=== PATIENT | male | born 1950 | race Caucasian/White ===

== ENCOUNTER → 2019-03-24 10:03 | Outpatient (CLI) | payer MEDICARE, SELFPAY ==
--- NOTE | ~2019-03-24 | US_ITS ---
EXAMINATION: US abdomen complete EXAM DATE: 03/24/2019 10:34 INDICATION: Right upper quadrant pain. TECHNIQUE: Multiple grayscale and Doppler images of the complete abdomen were obtained (by a technolo gist who performed the scan) and subsequently reviewed. There is no prior study for comparison. FINDINGS: The abdominal aorta is normal in caliber. Visualized portion IVC is patent. The pancreatic head a nd body are normal in appearance. The pancreatic tail is not visualized. Mildly echogenic liver parenchyma, hepatic steatosis. There are no focal liver lesions identified. There is no evidence of intrahepatic biliary duct dilation. Portal venous flow was seen in the hepa topedal, normal direction and has normal Doppler waveform. Common bile duct measures 5 mm, which is normal. The gallbladder wall is normal in thickness, with ex pected amount of distention. No sonographic evidence of pericholecystic fluid. There is no cholelit hiases. Technologist performing exam reports patient did not demonstrate sonographic Pinzon's sign. Please note that this sign is less reliable in patients who have received pain medication. Right kidney: There is normal contour and echogenicity. It measures 10.3 x 4.8 x 6.1 centimeters. There are no focal renal lesions identified. There is no hydronephrosis. Left kidney: There is normal contour and echogenicity. It measures 10.8 x 6.5 x 5.5 centimeters. T here are no focal renal lesions identified. There is no hydronephrosis. The spleen measures 10.2 centimeters and is morphologically normal. IMPRESSION: Unremarkable complete abdominal ultrasound exam. Reviewed, dictated and finalized at location B. DIP GALVANIZER
== END ==
PROVIDERS: PCP Family Medicine; Visit Provider Family Medicine
DX: R10.11 Right upper quadrant pain (principal)
CPT/HCPCS: 76700

== ENCOUNTER 2020-03-11 10:25 | Outpatient (CLI) | payer MEDICARE, SELFPAY ==
--- NOTE | ~2020-03-11 | US_ITS ---
EXAMINATION: US aorta [facility] DATE: 03/11/2020 11:00 DRIVING INSTRUCTOR INDICATION: Abdominal aortic aneurysm screening. Smoking history. TECHNIQUE: Grayscale, color Doppler, and pulsed Doppler images of the aorta and common iliac arteries were obtained. COMPARISON: None. FINDINGS: The proximal aorta measures 2.2 cm greatest sagittal dimension. The mid aorta measures 1.9 cm greates t sagittal dimension. The distal aorta measures 1.9 cm greatest sagittal dimension. The right common internal iliac artery measures 1 cm. The left common iliac artery measures 1.2 cm. There is moderate atherosclerosis of the lower abdominal aorta. IMPRESSION: 1. Atherosclerosis of the aorta without aneurysm. Reviewed, dictated and finalized at location A. ING INSTRUCTOR
== END 2020-03-11 10:26 | disposition home or self-care (01) ==
PROVIDERS: PCP Internal Medicine; Visit Provider Internal Medicine
DX: Z87.891 Personal history of nicotine dependence (principal); I70.0 Atherosclerosis of aorta
CPT/HCPCS: 76706

== ENCOUNTER 2021-07-01 16:05 | Inpatient (IN) | payer MEDICARE, SELFPAY ==
[2021-07-01] VITALS (21 sets, daily range): BP systolic 88–120; BP diastolic 61–77; PULSE 63–84; RESP 16–27; TEMP 36.3–37.1; O2SAT 94–99; BMI 27.8
--- NOTE | 2021-07-01 16:07 | ECG_ITS ---
Measurements Intervals [place] Rate: 73 P: 19 [place]: 206 QRS: 31 QRSD: 153 T: 91 QT: 428 QTc: 473 Interpretive Statements SINUS RHYTHM WITH SINUS ARRHYTHMIA WITH FIRST DEGREE AV BLOCK ATRIAL PREMATURE COMPLEX RIGHT BUNDLE BRANCH BLOCK INFERIOR ST ELEVATION MYOCARDIAL INFARCT- ACUTE ABNORMAL ECG Electronically Signed On 07-01-2021 16:38:12 CDT by Davonte Jolley D.O.
--- NOTE | 2021-07-01 16:10 | ED.CHESTPAIN ---
HPI - Chest Pain General Chief Complaint: Chest Pain Stated Complaint: STEMI Time Seen by Provider: 07/01/21 16:07 History of Present Illness HPI narrative: Crushing chest pain that started several hours ago while he was at the cafeteria, has never had any heart problems in the past, feels like it is underneath his chest, feeling nauseous and the pain is quite severe. Had already taking 325 of aspirin this morning. MD complaint: chest pain Timing of current episode: constant and still present Prior episodes: No Pain location: substernal Severity: severe Quality: tightness and heaviness Relieving factors: nothing Risk Factors Coronary artery disease risk factors: diabetes, smoking history and hypertension Related Data Home Medications Medication Instructions Recorded Confirmed cholecalciferol (vitamin D3) 50 50 mcg PO DAILY 03/06/20 05/15/21 mcg (2,000 unit) capsule magnesium oxide 400 mg PO DAILY 03/06/20 05/15/21 metoprolol tartrate 100 mg tablet 100 mg PO DAILY 03/06/20 05/15/21 omega-3 fatty acids 1,000 mg 1,000 mg PO DAILY 03/06/20 05/15/21 capsule zinc 50 mg tablet 50 mg PO DAILY 03/06/20 05/15/21 Allergies Allergy/AdvReac Type Severity Reaction Status Date / Time Penicillins Allergy Unknown Rash Verified 05/15/21 09:45 bacitracin Allergy Itching,sammie Verified 05/15/21 09:45 h benzalkonium chloride Allergy Itching,sammie Verified 05/15/21 09:45 h gramicidin D Allergy Itching,sammie Verified 05/15/21 09:45 h hydrocortisone Allergy Itching,sammie Verified 05/15/21 09:45 h polymyxin B Allergy Itching,sammie Verified 05/15/21 09:45 h BACITRACIN ZINC Allergy Itching,sammie Uncoded 05/15/21 09:45 h NEOMYCIN SULFATE Allergy Itching,sammie Uncoded 05/15/21 09:45 h POLYMYXIN B SULFATE Allergy Itching,sammie Uncoded 05/15/21 09:45 h Review of Systems Review of Systems: All systems reviewed & are unremarkable except as noted in HPI and below PMFSH Past Medical History Medical History (Updated 07/01/21 @ 16:18 by Nasima Hassan MD) Arthritis Diabetes Essential hypertension Impaired fasting glucose Surgical History Surgical History H/O hand surgery Family History Family History Mother Cardiac arrest Father Heart disease Other Diabetes mellitus Family history of cardiovascular disease Social History Social History Smoking packs per day: 0.5 Smoking cigarettes per day: 10.0 Years smoked: 25 Smoking pack-years: 12.50 Tobacco type: cigarettes Second hand tobacco smoke exposure: Yes Alcohol intake: former Substance use: never Substance use type: does not use Exam Const: General: diaphoretic and ill appearing HENMT: Head: normal to inspection Eyes: Other: Eyes closed with pain Neck: Neck: normal visual inspection Chest: Chest palpation & inspection: normal inspection of the chest and no tenderness Resp: Effort & Inspection: normal respiratory effort Cardio: Rate: regular rate Rhythm: regular rhythm GI: Inspection: non-distended Skin: General skin exam: normal color Neuro: General: patient oriented x3 Speech: No Abnormal speech present Extrem: General: normal to inspection Psych: Mental Status: mental status grossly normal Course Course Emergency Course: EMS called for STEMI. Patient arrived here, I did speak with the interventional list who came to bedside, I did review the twelve-lead which did show inferior CT, patient had already taken aspirin at home, he will be loaded with Brilinta here, and interventional cardiology will be taken to the drop crew laborer. MDM - Chest Pain MDM Narrative Medical decision making narrative: 71-year-old male with history of diabetes, hypertension, smoking history, presents with crushing chest pain, EKG shows ST elevations in leads II and II
--- NOTE | 2021-07-01 16:11 | PC.NURSE ---
pt to labor and delivery registered nurse with staff vorb for brillanta [address] Muir no other orders prior to exiting the ED
[2021-07-01] MEDS: TICAGRELOR 90 MG TABLET 180 MG PO (16:15)
--- NOTE | 2021-07-01 16:16 | PM.IMHP ---
H&P: HPI History of Present Illness Date/Time: 07/01/21 16:16 Chief Complaint: Chest pain Narrative: this is a 71-year-old patient unknown to me prior to this evaluation. He is being seen in the emergency room in the setting of suspected acute ST-elevation DC he has just brought in by ambulance. The patient was outside of the hospital and began to experience substernal chest pain pressure like radiation to the left shoulder about an hour and half to 2 hours ago. Upon arrival at the scene EMS performed an ECG which appears to show sinus rhythm with acute inferior current of injury. In that setting he is being seen in consultation in the ER as we prepare for emergency angiography. He denies any prior knowledge of cardiovascular problems. According to the chart looks like he has diabetes mellitus, dyslipidemia and cigarette smoking as his principal risk factors. Review of Systems Review of Systems: ROS unobtainable: Yes unobtainable due to medical condition PMFSH Past Medical History Medical History (Updated 07/01/21 @ 16:18 by Nasima Hassan MD) Arthritis Diabetes Essential hypertension Impaired fasting glucose Surgical History Surgical History H/O hand surgery Family History Family History Mother Cardiac arrest Father Heart disease Other Diabetes mellitus Family history of cardiovascular disease Social History Social History Smoking packs per day: 0.5 Smoking cigarettes per day: 10.0 Years smoked: 25 Smoking pack-years: 12.50 Tobacco type: cigarettes Second hand tobacco smoke exposure: Yes Alcohol intake: former Substance use: never Substance use type: does not use Meds Home Medications and Allergies Home Medications Medication Instructions Recorded Confirmed Type cholecalciferol (vitamin D3) 50 50 mcg PO DAILY 03/06/20 05/15/21 History mcg (2,000 unit) capsule magnesium oxide 400 mg PO DAILY 03/06/20 05/15/21 History metoprolol tartrate 100 mg tablet 100 mg PO DAILY 03/06/20 05/15/21 History omega-3 fatty acids 1,000 mg 1,000 mg PO DAILY 03/06/20 05/15/21 History capsule zinc 50 mg tablet 50 mg PO DAILY 03/06/20 05/15/21 History rosuvastatin 20 mg tablet 20 mg PO DAILY #90 tablet 10/02/20 05/15/21 Rx metformin 1,000 mg tablet See Rx Instructions .ROUTE 01/03/21 05/15/21 Rx .COMPLEX #180 tablet blood sugar diagnostic See Rx Instructions .ROUTE 04/01/21 05/15/21 Rx .COMPLEX #100 strip empagliflozin 25 mg tablet 25 mg PO DAILY #90 tablet 05/03/21 05/15/21 Rx insulin glargine 100 unit/mL (3 See Rx Instructions .ROUTE 05/15/21 05/15/21 Rx mL) subcutaneous pen .COMPLEX #30 ml hydrochlorothiazide 25 mg tablet 25 mg PO DAILY #90 tablet 05/17/21 Rx lisinopril 40 mg tablet 40 mg PO DAILY #90 tablet 05/17/21 Rx Allergies Allergy/AdvReac Type Severity Reaction Status Date / Time Penicillins Allergy Unknown Rash Verified 05/15/21 09:45 bacitracin Allergy Itching,sammie Verified 05/15/21 09:45 h benzalkonium chloride Allergy Itching,sammie Verified 05/15/21 09:45 h gramicidin D Allergy Itching,sammie Verified 05/15/21 09:45 h hydrocortisone Allergy Itching,sammie Verified 05/15/21 09:45 h polymyxin B Allergy Itching,sammie Verified 05/15/21 09:45 h BACITRACIN ZINC Allergy Itching,sammie Uncoded 05/15/21 09:45 h NEOMYCIN SULFATE Allergy Itching,sammie Uncoded 05/15/21 09:45 h POLYMYXIN B SULFATE Allergy Itching,sammie Uncoded 05/15/21 09:45 h Vital Signs Vital Signs - 24 hr 07/01/21 16:03 Temperature 36.3 C L Pulse Rate 74 Respiratory Rate 17 Blood Pressure 103/69 Pulse Oximetry 99 Exam Const: General: in distress Other: Elderly white male appearing a bit older than his stated age moderate distress with chest pain HENMT: Mouth: Yes moist mucous membranes Eyes:
[2021-07-01 17:12] LABS: Basophils Absolute Auto 0.1 K/mm3 (0.0-0.1); Basophils Percent Auto 0.5 % (0.2-1.2); Eosinophils Absolute Auto 0.2 K/mm3 (0-0.3); Eosinophils Percent Auto 1.7 % (0-4.4); Hematocrit 43.8 % (42.0-52.0); Hemoglobin 14.4 g/dL (14.0-18.0); Immature Granulocyte Absolute 0.17 K/mm3 (0.00-0.031); Immature Granulocyte Percent A 1.3 % (0-0.5); Lymphocytes Absolute Auto 1.81 K/mm3 (0.9-3.2); Lymphocytes Percent Auto 14.2 % (18.3-44.2); Mean Corpuscular HGB Conc 32.9 g/dl (32-36); Mean Corpuscular Hemoglobin 29.8 pg (26-34); Mean Corpuscular Volume 90.5 fl (80-100); Mean Platelet Volume 10.8 fl (7.4-10.4); Monocytes Absolute Auto 0.9 K/mm3 (0.1-0.6); Monocytes Percent Auto 7.3 % (2.6-8.5); Neutrophils Absolute Auto 9.5 K/mm3 (1.3-6.7); Platelet Count Result 245 k/mm3 (150-375); Red Blood Count 4.84 M/mm3 (4.6-6.20); Red Cell Distribution Width 14.6 % (11.5-14.5); White Blood Count 12.7 K/mm3 (4.5-10.0)
[2021-07-01 17:20] LABS: Alanine Aminotransferase 12 U/L (6-50); Albumin Level 4.1 g/dL (3.5-5.1); Alkaline Phosphatase 57 U/L (38-126); Anion Gap 12 mmol/L (8-16); Aspartate Amino Transferase 24 U/L (17-59); Bilirubin,Total 0.3 mg/dL (0.2-1.3); Blood Urea Nitrogen 35 mg/dL (9-20); Calcium 8.3 mg/dL (8.4-10.2); Carbon Dioxide 19 mmol/L (22-30); Chloride 105 mmol/L (98-107); Estimated CRCL calculation 38 ml/min; Estimated Glomerular Filt Rate 37; Glucose 176 mg/dL (65-110); Potassium 3.5 mmol/L (3.4-5.0); Sodium 136 mmol/L (137-145)
[2021-07-01 17:33] LABS: Partial Thromboplastin Time 113.8 SECONDS (22.3-36.8)
--- NOTE | 2021-07-01 17:36 | WPDCARDPROC ---
Cardiac Cath Procedure Note Date of procedure:: 07/01/21 Performing physician:: Chad Muir MD Indication:: acute inferior wall [place] Brief clinical history:: this is a 71-year-old man with a history of longstanding cigarette smoking hypertension and dyslipidemia presents with chest pain and ECG evidence of acute ST-elevation inferior wall AZ Procedure Procedure performed:: emergency coronary angiography emergency PCI(EMILY) to the proximal RCA Sedation/Medication given:: Versed 1 mg case start time 4:28 p.m. case end time 5:19 p.m. Access site:: right femoral artery, left femoral artery Estimated blood loss:: 50 cc Procedure note:: patient was brought to the cardiac catheterization lab in the emergency setting described above where the right femoral triangle was prepared and draped in the usual fashion. Anesthesia was provided with 1% lidocaine infiltrated locally the right UE was then punctured and a 6 Tongan vascular sheath was placed. Following this I used a standard 5 Tongan FL4 catheter to engage and inject the left coronary artery in multiple projections. After this I used a 6 Tongan JR4 guiding catheter to engage and inject the right coronary artery. PCI of the proximal right coronary occlusion was then recommended and carried out as detailed below. The patient had received aspirin and 180 mg of Brilinta in the emergency room. He was anticoagulated with bolus and infusion of Angiomax for this PCI. Because of difficulty with access and guidewire dissection of the right femoral artery the left femoral artery was punctured and the procedure was completed from this site. Following completion of the intervention as described below the right and left femoral vascular sheath was sutured into position he was taken back to the ICU in stable condition there was no sign of any other than the dissection as described above and there was no evidence of groin hematoma upon completion of the case. Findings:: Hemodynamics: Central aortic pressure varied from 110/72 to a low of 75/45. The left ventricle was not entered during this procedure The left main coronary artery is nicely patent the left anterior descending is heavily calcified in its proximal aspect. Despite this there are no stenotic lesions in the LAD other than mild luminal irregularities in the proximal and midportions. There was NOEMÍ 3 flow in the vessel down to the apex. The circumflex is a moderate caliber artery giving rise to a. The largest marginal branch has a discrete 70-80% stenosis in the midportion. The right coronary caliber dominant to the posterior circulation and is moderately calcified as well. The right coronary artery is 100% occluded in the proximal segment with no antegrade flow. Intervention: The right coronary artery was initially engaged using a 6 Tongan JR4 guiding catheter. The 0.014 BMW wire would not traverse occlusion. I did traverse the occlusion using a 0.014 drawing box tender 150 wire. following this with some difficulty I was able to advance a balloon into the site of the occlusion and pre-dilated the area with a 3 x 20 mm Wilner balloon. This restored NOEMÍ 3 flow into the vessel. Following this I attempted to stent the target lesion using a 3.5 x 22 mm Orsiro device which would not advance through the heavily calcified proximal area to the target lesion. As these attempts continue the entire guiding catheter and wires position were lost in the right coronary artery in the entire system was removed. Following that I plan to re-engage the right coronary artery using a AL1 guiding catheter. The guidewire however would not advance from the right femoral sheath into the central aortic circulation. There was good arterial flow in the sheath however inability to advance the wire was encountered. I performed an angiogram through the sheath and it was clear there was a retrograde wire dissection in the femoral vessel. There appeared to be good flow
[2021-07-01 17:44] LABS: Prothrombin Time 65.2 Seconds (11.1-14.7)
[2021-07-01 17:52] LABS: Troponin I 0.019 ng/mL (0.000-0.034)
--- NOTE | 2021-07-01 17:54 | ECG_ITS ---
Measurements Intervals [place] Rate: 85 P: 38 [place]: 199 QRS: -66 QRSD: 143 T: 0 QT: 432 QTc: 516 Interpretive Statements SINUS RHYTHM ATRIAL COUPLET RIGHT BUNDLE BRANCH BLOCK INFERIOR ST ELEVATION MYOCARDIAL INFARCT- ACUTE POSTERIOR INFARCT, ACUTE BASELINE ARTIFACT- I, II III, AVR, AVL, AVF, V4-V5 ABNORMAL ECG Electronically Signed On 07-02-2021 7:50:33 CDT by Davonte Jolley D.O.
[2021-07-01 18:26] LABS: Anion Gap 13 mmol/L (8-16); Blood Urea Nitrogen 34 mg/dL (9-20); Calcium 8.7 mg/dL (8.4-10.2); Carbon Dioxide 20 mmol/L (22-30); Chloride 104 mmol/L (98-107); Cholesterol 142 mg/dL (0-200); Estimated CRCL calculation 34 ml/min; Estimated Glomerular Filt Rate 37; Glucose 139 mg/dL (65-110); HDL Direct 33 mg/dL; Potassium 4.2 mmol/L (3.4-5.0); Sodium 137 mmol/L (137-145); Triglycerides 346 mg/dL (<150)
[2021-07-01 18:27] LABS: INR 2.6; Prothrombin Time 26.7 Seconds (11.1-14.7)
[2021-07-01 18:37] LABS: LDL Cholesterol Direct 68 mg/dL
[2021-07-01 18:40] LABS: Troponin I 0.088 ng/mL (0.000-0.034)
[2021-07-01] MEDS: SODIUM CHLORIDE 0.9% IV 1,000 ML 125 ML IV CONT (18:55)
[2021-07-01 19:53] LABS: Partial Thromboplastin Time 79.4 SECONDS (22.3-36.8)
[2021-07-01 21:22] LABS: INR 1.3; Partial Thromboplastin Time 42.7 SECONDS (22.3-36.8); Prothrombin Time 15.7 Seconds (11.1-14.7)
[2021-07-01] MEDS: TICAGRELOR 90 MG TABLET PO (23:00)
[2021-07-02] VITALS (24 sets, daily range): BP systolic 103–124; BP diastolic 65–79; PULSE 62–87; RESP 13–24; TEMP 36.7–37.1; O2SAT 95–98
[2021-07-02] MEDS: ACETAMINOPHEN 500 MG TABLET PO (02:54)
--- NOTE | 2021-07-02 05:11 | ECG_ITS ---
Measurements Intervals [place] Rate: 63 P: -33 [place]: 188 QRS: -74 QRSD: 158 T: -53 QT: 460 QTc: 474 Interpretive Statements SINUS RHYTHM RIGHT BUNDLE BRANCH BLOCK INFERIOR INFARCT, AGE INDETERMINATE ABNORMAL ECG Electronically Signed On 07-02-2021 9:51:08 CDT by Davonte Jolley D.O.
--- NOTE | 2021-07-02 08:32 | PC.NURSE ---
Cardiopulmonary Rehab Services flyer was given to patient.
[2021-07-02 08:37] LABS: Glucose Point of Care 125 mg/dl (65-105)
[2021-07-02 08:47] LABS: Hemoglobin 14.5 g/dL (14.0-18.0); Mean Corpuscular HGB Conc 34.5 g/dl (32-36); Mean Corpuscular Hemoglobin 30.3 pg (26-34); Mean Corpuscular Volume 87.7 fl (80-100); Mean Platelet Volume 10.7 fl (7.4-10.4); Platelet Count Result 238 k/mm3 (150-375); Red Blood Count 4.79 M/mm3 (4.6-6.20); Red Cell Distribution Width 14.7 % (11.5-14.5); White Blood Count 14.2 K/mm3 (4.5-10.0)
[2021-07-02 08:58] LABS: Alanine Aminotransferase 14 U/L (6-50); Alkaline Phosphatase 54 U/L (38-126); Anion Gap 10 mmol/L (8-16); Aspartate Amino Transferase 86 U/L (17-59); Bilirubin,Total 0.8 mg/dL (0.2-1.3); Blood Urea Nitrogen 24 mg/dL (9-20); Calcium 8.8 mg/dL (8.4-10.2); Carbon Dioxide 20 mmol/L (22-30); Chloride 108 mmol/L (98-107); Estimated CRCL calculation 59 ml/min; Estimated Glomerular Filt Rate > 60; Glucose 103 mg/dL (65-110); Potassium 3.8 mmol/L (3.4-5.0); Sodium 138 mmol/L (137-145)
[2021-07-02 09:19] LABS: Creatine Kinase 881 U/L (55-170)
[2021-07-02] MEDS: LACTATED RINGERS 1,000 ML 75 ML IV CONT ×2 (09:28→23:15)
[2021-07-02] MEDS: ASPIRIN 81 MG CHEWABLE TABLET PO (09:42)
[2021-07-02] MEDS: ROSUVASTATIN 10 MG TABLET 20 MG PO (09:42)
[2021-07-02] MEDS: lisinopriL 10 MG TABLET PO (09:42)
[2021-07-02] MEDS: METOPROLOL SUCCINATE EXT REL 50 MG TABCR PO (09:42)
[2021-07-02] MEDS: TICAGRELOR 90 MG TABLET PO ×2 (09:42→21:16)
[2021-07-02] MEDS: FONDAPARINUX SODIUM 2.5 MG/0.5 ML SYRINGE SUB-Q (09:43)
[2021-07-02 11:28] LABS: Glucose Point of Care 127 mg/dl (65-105)
--- NOTE | 2021-07-02 12:04 | WPDCNINT ---
Assessment and Plan Assessment and plan (1) ST elevation (STEMI) myocardial infarction: Qualifiers: Involved coronary artery: other inferior wall coronary artery Qualified Code(s): I21.19 - ST elevation (STEMI) myocardial infarction involving other coronary artery of inferior wall Code(s): I21.3 - ST elevation (STEMI) myocardial infarction of unspecified site Status: Acute Assessment and Plan: Says status post successful PCI of RCA total occlusion Continue aspirin, lisinopril metoprolol Crestor and Brilinta Check echo Patient is symptomatic at this time Continue IV fluids (2) Essential hypertension: Code(s): I10 - Essential (primary) hypertension Status: Acute Assessment and Plan: Patient on beta-moreno and GENARO-inhibitor Monitor and adjust accordingly (3) Diabetes: Qualifiers: Diabetes mellitus type: type 2 Diabetes mellitus senior living insulin use: with exterminator termite use Diabetes mellitus complication status: with hyperglycemia Qualified Code(s): E11.65 - Type 2 diabetes mellitus with hyperglycemia; Z79.4 - detention (current) use of insulin Code(s): E11.9 - Type 2 diabetes mellitus without complications Status: Acute Assessment and Plan: Hold metformin due to elevation in creatinine Start sliding scale insulin Add Lantus once p.o. intake improves and blood sugars elevated (4) Dissection of right femoral artery: Code(s): I77.77 - Dissection of artery of lower extremity Status: Acute Assessment and Plan: Patient had retrograde guidewire dissection of right femoral artery but had good arterial flow. No intervention was performed. Pulses are unchanged patient asymptomatic Further management per Cardiology (5) FLOR (acute kidney injury): Code(s): N17.9 - Acute kidney failure, unspecified Status: Acute Assessment and Plan: Patient presented with elevated creatinine 1.8 which was checked after cardiac catheterization so could be contrast induced versus rhabdomyolysis at CK is elevated at 881. Patient also on metformin at home Improved with IV fluids and creatinine in normal range. Will continue IV fluids through today Monitor urine output electrolytes and creatinine Monitor CK level Additional Plan DVT prophylaxis -Arixtra Code Status - Full Code Transfer out of ICU today Geothermal Technician Consult Note Consult date: 07/02/21 HPI: Reji Heredia is a 71 year old male presented to ER with chief complaint of chest pain. Pain was substernal, pressure-like quality, 10/10 severe, no radiation, no aggravating or relieving factors. Pain was associated with feeling cold and clammy, dizziness and lightheadedness. No associated nausea vomiting or shortness of breath. In ED patient was diagnosed with ST segment elevation [place] and was taken to cardiac catheterization lab and underwent a cardiac catheterization which showed 1. Coronary artery disease presenting with acute inferior wall ST-elevation [place] in 71-year-old gentleman with hypertension dyslipidemia and smoking. 2. Proximal RCA total occlusion was successfully treated would a procedure that proved to be somewhat difficult and challenging for all the reasons described above ultimately after deployment of the 3.5 mm drug-eluting stent the else vessel is nicely patent with very good flow into the distal RCA except for the last 3rd RPL branch. 3. Non infarct related moderate stenosis of 70-80% in the OM branch of the circumflex 4. retrograde guidewire dissection of the right femoral artery further access of the aorta from this approach. despite this there was good arterial flow into the sheath and the procedure was finished as described above from the left femoral Artery. Post cardiac catheterization patient was admitted to ICU for further evaluation management including vascular check. Patient this morning states that he feels much better and denies any complaints at this time.
[2021-07-02 15:45] LABS: Glucose Point of Care 168 mg/dl (65-105)
--- NOTE | 2021-07-02 16:03 | PM.PNCARD ---
Progress Note: A&P Assessment and Plan (1) ST elevation (STEMI) myocardial infarction: Qualifiers: Involved coronary artery: other inferior wall coronary artery Qualified Code(s): I21.19 - ST elevation (STEMI) myocardial infarction involving other coronary artery of inferior wall Code(s): I21.3 - ST elevation (STEMI) myocardial infarction of unspecified site Status: Acute Assessment and Plan: stable, doing well post 3.5 x 22 mm Orsiro drug-eluting stent to side of proximal RCA total occlusion. Moderate stenosis 70-80% of OM branch of circumflex. Dual antiplatelet therapy without interruption with aspirin 81 mg daily and ticagrelor 90 mg q.12 hours, statin lisinopril, Toprol XL 50 mg daily. 2D echocardiogram to assess valve pathology, LV function, wall motion abnormalities, pulmonary pressures. Okay to transfer to IMU. (2) Dissection of right femoral artery: Code(s): I77.77 - Dissection of artery of lower extremity Status: Acute Assessment and Plan: Retrograde guidewire dissection right femoral artery access as noted per Dr. Muir good arterial flow no evidence of vascular compromise, cyanosis, palpable DP pulses. Continue close observation. (3) Essential hypertension: Code(s): I10 - Essential (primary) hypertension Status: Acute Assessment and Plan: stable. Continue medical therapy. (4) Diabetes: Qualifiers: Diabetes mellitus type: type 2 Diabetes mellitus terminologist insulin use: with fci use Diabetes mellitus complication status: with hyperglycemia Qualified Code(s): E11.65 - Type 2 diabetes mellitus with hyperglycemia; Z79.4 - terminal manager (current) use of insulin Code(s): E11.9 - Type 2 diabetes mellitus without complications Status: Acute Assessment and Plan: Management per primary service. (5) Dyslipidemia: Code(s): E78.5 - Hyperlipidemia, unspecified Status: Acute Assessment and Plan: Rosuvastatin, goal LDL less than 70. (6) FLOR (acute kidney injury): Code(s): N17.9 - Acute kidney failure, unspecified Status: Acute Assessment and Plan: Resolved. (7) Tobacco use: Code(s): Z72.0 - Tobacco use Status: Acute Assessment and Plan: Immediate and absolute smoking cessation counseling. Subjective Date/time seen: Date of service:07/02/21 16:03 Follow-up for inferior STEMI status post drug-eluting stent to RCA feels well. No chest pain, shortness of breath palpitations. No issues overnight. No significant ventricular arrhythmias on telemetry. Denies groin or leg pain. Family at bedside. Review of Systems Review of Systems: All systems reviewed & are unremarkable except as noted in HPI and below Constitutional: Constitutional: Reports as per HPI and Reports no additional constitutional complaints Eyes: Eyes: Reports as per HPI and Reports no additional eye complaints ENT: Reports system reviewed and no additional complaints, except as documented and Reports as per HPI Cardiovascular: Cardiovascular: Reports as per HPI and Reports no additional cardiovascular complaints Respiratory: Respiratory: Reports as per HPI and Reports no additional respiratory complaints Gastrointestinal: Gastrointestinal: Reports as per HPI and Reports no additional gastrointestinal complaints Genitourinary: Genitourinary: Reports no additional male genitourinary complaints and Reports as per HPI Musculoskeletal: Musculoskeletal: Reports no additional musculoskeletal complaints and Reports as per HPI Integumentary/Breasts: Skin/Breast: Reports system reviewed and no additional complaints, except as docu and Reports as per HPI Neurologic: Reports system reviewed and no additional complaints, except as documented and Reports as per HPI Psychiatric: Psychiatric: Reports no additional psychiatric complaints and Reports as per HPI Endocrine: Endocrine: Rep
[2021-07-02 21:12] LABS: Glucose Point of Care 247 mg/dl (65-105)
[2021-07-03] VITALS: BP 115/78; PULSE 77; RESP 18; TEMP 36.6; O2SAT 94
--- NOTE | 2021-07-03 | ECHO_ITS ---
Patient Info Name: Reji Heredia Age: 71 years : 1950 Gender: Male Ht: 68 in Wt: 182 lbs BSA: 2.01 m2 HR: 71 bpm BP: 118 / 65 mmHg Heart Rhythm: Sinus Rhythm Technical Quality: Fair Exam Date: 07/03/2021 7:24 AM Exam Location: [facility] Patient Status: Inpatient Admit Date: 07/01/2021 Staff Ordering Physician: Rory Velez MD [employer] Manager: Ami Marlow RDCS Attending Provider: Chad Muir MD Referring Physician: Agustin MCARTHUR; Exam Type: CA echo doppler color flow Study Info Indications - stemi Complete two-dimensional, color flow and Doppler transthoracic echocardiogram is performed. Summary 1. Complete two-dimensional, color flow and Doppler transthoracic echocardiogram is performed. 2. Left ventricular chamber dimension is normal. 3. Left ventricular systolic function is normal, estimated at 60% with mild hypokinesis of the mid inferolateral, mid and basal inferior wall.. 4. There is no increased left ventricular wall thickness. 5. The left ventricular diastolic function is grade I diastolic dysfunction. 6. There is no aortic valve stenosis. 7. There is no mitral valve regurgitation. 8. There is trace tricuspid valve regurgitation. 9. No pulmonary hypertension, estimated pulmonary arterial systolic pressure is 23 mmHg. Left Ventricle Left ventricular chamber dimension is normal. Left ventricular systolic function is normal, estimated at 60% with mild hypokinesis of the mid inferolateral, mid and basal inferior wall.. There is no increased left ventricular wall thickness. The left ventricular diastolic function is grade I diastolic dysfunction. Right Ventricle Right ventricular chamber dimension is normal. Right ventricular systolic function is normal. Left Atria Left atrial chamber dimension is normal. Right Atria Right atrial chamber dimension is normal. Aortic Valve The aortic valve is trileaflet. There is no aortic valve stenosis. There is no aortic valve regurgitation. There is mild aortic valve calcification. Pulmonic Valve The pulmonic valve is not well visualized. Mitral Valve The mitral valve has thickened leaflets. There is no mitral valve regurgitation. The mitral valve annulus is mildly calcified. Tricuspid Valve The tricuspid valve leaflets are normal. There is trace tricuspid valve regurgitation. No pulmonary hypertension, estimated pulmonary arterial systolic pressure is 23 mmHg. Pericardium/Pleural The pericardium appears normal. There is no pericardial effusion. Inferior Vena Cava Normal inferior vena cava with >50% collapse upon inspiration consistent with normal right atrial pressure, 5 mmHg. Aorta The aortic root size at the sinus of Valsalva is normal. The prox ascending aorta size is normal. Left Ventricular Outflow Tract Name Value Normal LVOT Doppler LVOT Peak Gradient 4 mmHg LVOT Mean Gradient 1 mmHg LVOT VTI 14 cm LVOT VTI/AV VTI Ratio 0.5 Pulmonic Valve Name Value Normal
[2021-07-03 02:00] VITALS: BP 105/81; PULSE 84; RESP 19; O2SAT 92
[2021-07-03 04:00] VITALS: BP 108/81; PULSE 74; RESP 17; TEMP 36.8; O2SAT 92
[2021-07-03 04:43] LABS: Hemoglobin 14.9 g/dL (14.0-18.0); Mean Corpuscular HGB Conc 34.7 g/dl (32-36); Mean Corpuscular Hemoglobin 30.3 pg (26-34); Mean Corpuscular Volume 87.6 fl (80-100); Mean Platelet Volume 10.4 fl (7.4-10.4); Platelet Count Result 217 k/mm3 (150-375); Red Blood Count 4.91 M/mm3 (4.6-6.20); Red Cell Distribution Width 14.6 % (11.5-14.5)
[2021-07-03 04:57] LABS: Alanine Aminotransferase 16 U/L (6-50); Albumin Level 4.3 g/dL (3.5-5.1); Alkaline Phosphatase 61 U/L (38-126); Anion Gap 10 mmol/L (8-16); Aspartate Amino Transferase 87 U/L (17-59); Bilirubin,Total 1.2 mg/dL (0.2-1.3); Blood Urea Nitrogen 21 mg/dL (9-20); Calcium 9.2 mg/dL (8.4-10.2); Carbon Dioxide 22 mmol/L (22-30); Chloride 105 mmol/L (98-107); Creatine Kinase 672 U/L (55-170); Estimated CRCL calculation 59 ml/min; Estimated Glomerular Filt Rate > 60; Glucose 142 mg/dL (65-110); Potassium 4.1 mmol/L (3.4-5.0); Sodium 137 mmol/L (137-145)
[2021-07-03 06:00] VITALS: BP 106/74; PULSE 76; RESP 20; O2SAT 92
--- NOTE | 2021-07-03 07:37 | PM.DS ---
DS: Admitting Diagnosis Discharge Date 07/03/2021 Admitting Diagnosis Acute inferior wall myocardial infarction DS: Discharge Diagnosis Discharge Diagnosis (1) ST elevation (STEMI) myocardial infarction: Qualifiers: Involved coronary artery: other inferior wall coronary artery Qualified Code(s): I21.19 - ST elevation (STEMI) myocardial infarction involving other coronary artery of inferior wall Code(s): I21.3 - ST elevation (STEMI) myocardial infarction of unspecified site Status: Acute DS: Summary Hospital Course Reason for hospitalization: ST-elevation PA Hospital Course: This is a 71-year-old man without prior history of known coronary disease but with longstanding cigarette smoking hypertension and dyslipidemia. He presented to the hospital with about an hour and half of significant chest pain. ECG in the field demonstrated acute inferior wall PA. STEMI team/protocol was activated. Upon arrival in the emergency room he was found to be in the significant distress with chest pain otherwise hemodynamically stable. He was brought for emergency catheterization immediately. He was found to have 100% acute thrombotic occlusion of the proximal right coronary artery. His left coronary artery had no serious disease there was about a 70% stenosis and a OM branch of the circumflex with good flow in that vessel. He underwent emergency PCI which was successful but difficult and challenging. Initial guiding catheter did not provide adequate support to perform the PCI in the right coronary artery. When guiding catheters were changed we encountered a dissection in the right femoral artery treated by the guidewire in the vessel. There was good arterial flow in the artery but for this reason the left femoral artery had to be put should for access. The intervention was then completed successfully. The proximal right coronary artery was a heavily calcified artery it was difficult to deliver a stent into the vessel ultimately this was successful. The details of this are dictated in the procedure note DOS separately. Following this he was placed in the ICU and he was hemodynamically stable there were no arrhythmias following the event and his course was otherwise uncomplicated. He appears to be a good candidate for discharge today. His home medications already included lisinopril metoprolol and rosuvastatin. Because his blood pressure was low initially the doses of lisinopril and metoprolol have been decreased. He was admonished to discontinue cigarette smoking. He will be seen in the office for a 2-3 weeks in follow-up. He wishes to go back to work on Thursday07/08/2021. Time spent discussing smoking cessation with patient: more than 10 minutes Status at Discharge Functional status at discharge: independent ambulation Overall status at discharge: patient is progressing back to baseline Time Spent with Patient Time attestation: Total time spent providing and/or coordinating discharge services: Time spent: Less than 30 minutes Exam Const: General: no acute distress HENMT: Mouth: Yes moist mucous membranes Eyes: Sclera: sclerae normal Pupils: Equal, round and reactive pupils present Neck: Neck: supple and no JVD Other: Carotid pulses are intact bilaterally no audible bruits Resp: Auscultation: clear to auscultation bilaterally and diminished lung sounds Cardio: Rate: regular rate Rhythm: regular rhythm Other: Grade 2/6 crescendo decrescendo murmur audible at the base without radiation no gallop GI: GI Palp: Yes Soft to palpation Auscultation: normal bowel sounds Skin: General skin exam: normal color Neuro: General: gait normal Extrem: General: normal to inspection DS: Data Data Completed and Pending Labs on day of discharge: Labs from last 24 hours 07/03/21 07/03/21 07/02/21 04:36 04:36 21:09 WBC 11.0 H RBC 4.91 Hgb 14.9 Hct 43.0 MCV 87.6 MCH 30.3 MCHC 34.7 RDW 14.6 H Plt
[2021-07-03 08:00] VITALS: BP 115/87; PULSE 76; PULSE 78; RESP 19; TEMP 36.8; O2SAT 90; O2SAT 95
[2021-07-03 08:06] LABS: Glucose Point of Care 150 mg/dl (65-105)
[2021-07-03] MEDS: ASPIRIN 81 MG CHEWABLE TABLET PO (08:35)
[2021-07-03] MEDS: FONDAPARINUX SODIUM 2.5 MG/0.5 ML SYRINGE SUB-Q (08:36)
[2021-07-03 08:37] VITALS: PULSE 82
[2021-07-03] MEDS: lisinopriL 10 MG TABLET PO (08:37)
[2021-07-03] MEDS: TICAGRELOR 90 MG TABLET PO (08:37)
[2021-07-03] MEDS: ROSUVASTATIN 10 MG TABLET 20 MG PO (08:37)
[2021-07-03] MEDS: METOPROLOL SUCCINATE EXT REL 50 MG TABCR PO (08:37)
== END 2021-07-03 10:20 | disposition home or self-care (01) | DRG 247 ==
LOC: ANHED 16:12 → ANHICU 16:18
PROVIDERS: Internal Medicine; Admitting Provider Specialist; Emergency Provider Emergency Medicine; PCP Internal Medicine; Visit Provider Specialist
PROC: 027034Z Dilation of Coronary Artery, One Artery with Drug-eluting Intraluminal Device, Percutaneous Approach (ICD-10-PCS; CPT 93454; principal; 2021-07-01 16:10)
PROC: 027034Z Dilation of Coronary Artery, One Artery with Drug-eluting Intraluminal Device, Percutaneous Approach (ICD-10-PCS; 2021-07-01 16:10)
PROC: 027034Z Dilation of Coronary Artery, One Artery with Drug-eluting Intraluminal Device, Percutaneous Approach (ICD-10-PCS; CPT 36140; 2021-07-01 16:10)
DX: I21.11 ST elevation (STEMI) myocardial infarction involving right coronary artery (principal); N17.9 Acute kidney failure, unspecified; I97.51 Accidental puncture and laceration of a circulatory system organ or structure during a circulatory system procedure; I25.10 Atherosclerotic heart disease of native coronary artery without angina pectoris; I10 Essential (primary) hypertension; E78.5 Hyperlipidemia, unspecified; M19.90 Unspecified osteoarthritis, unspecified site; E11.65 Type 2 diabetes mellitus with hyperglycemia; F17.210 Nicotine dependence, cigarettes, uncomplicated; Z79.4 Long term (current) use of insulin
CPT/HCPCS: 36140; 36415; 80048; 80053; 80061; 82550; 82948; 83735; 84484; 85025; 85027; 85610; 85730; 86850; 86900; 86901; 93005; 93306; 93454; 96360; 99291; A9270; C1725; C1769; C1874; C1887; C1894; C9606; J1644; J1652; J2250; J7030; J7120

== ENCOUNTER 2021-10-30 09:45 | Outpatient (RCR) | payer MEDICARE, SELFPAY ==
[2021-08-15 10:59] LABS: Glucose Point of Care 177 mg/dl (65-105)
[2021-09-04 10:43] LABS: Glucose Point of Care 169 mg/dl (65-105)
[2021-09-18 10:47] LABS: Glucose Point of Care 117 mg/dl (65-105)
== END 2021-10-30 19:30 | disposition home or self-care (01) ==
LOC: ANHCPREHAB 09:45
PROVIDERS: PCP Internal Medicine; Visit Provider Nurse Practitioner Adult Health
DX: I25.2 Old myocardial infarction (principal)
CPT/HCPCS: 93798

== ENCOUNTER 2022-11-07 08:04 | Outpatient (CLI) | payer MEDICARE, SELFPAY ==
--- NOTE | ~2022-11-07 | XR_ITS ---
XR abdomen/kub 1V 11/07/2022 08:35 Indication: Right upper quadrant pain Procedure: KUB Comparison: No prior studies for comparison. Findings: Bowel gas pattern is nonobstructive. Moderate colonic fecal loading. There is a left renal stone. There are splenic arterial calcifications. Lung bases are unremarkable. Moderate lumbar spondy losis. There are pelvic phleboliths. Impression: 1: Left nephrolithiasis. Reviewed, dictated and finalized at location B. Impression: 1: Left nephrolithiasis.
--- NOTE | ~2022-11-07 | US_ITS ---
US abdomen limited INDICATION: Right upper quadrant pain PROCEDURE: Realtime right upper abdominal ultrasound. COMPARISON: No prior studies for comparison. FINDINGS: The pancreas is normal without focal mass or pancreatic ductal dilation. Liver echotexture is normal without focal mass or intrahepatic biliary dilatation. There is normal directional flow i n the portal vein. There are multiple gallbladder polyps. No gallstones, gallbladder wall thickening or pericholecystic fluid. Common bile duct measures 4 mm. No sonographic Pinzon's sign. IMPRESSION: 1: Gallbladder polyps. Reviewed, dictated and finalized at location B. IMPRESSION: 1: Gallbladder polyps.
--- NOTE | ~2022-11-07 | CT_ITS ---
EXAMINATION: CT lung screening DATE: 11/07/2022 08:25 INDICATION: Personal history of nicotine dependence TECHNIQUE: Computed tomography (CT) of the chest was performed without intravenous contrast. The dose -length product was 115.01 mGy-cm. Automated exposure control and iterative reconstruction technique were employed. COMPARISON: No prior studies for comparison. FINDINGS: Heart size normal. No thoracic lymphadenopathy. There is atherosclerosis of the aorta and c oronary arteries. Small hiatal hernia. No significant pleural or pericardial effusion. There are smal l bilateral pulmonary nodules which are not clearly calcified, 5 mm, right middle lobe, image 70. No endobronchial lesions. No suspicious focal airspace consolidation. No pneumothorax. Moderate-severe t horacic spondylosis. IMPRESSION: 1. Lung-RADS category 2: Benign appearance or behavior. Continue annual screening with noncontrast lo w-dose chest CT in 12 months. Reviewed, dictated and finalized at location B. IMPRESSION: 1. Lung-RADS category 2: Benign appearance or behavior. Continue annual screeni ng with noncontrast low-dose chest CT in 12 months.
--- NOTE | ~2022-11-07 | XR_ITS ---
XR hip BI 2V w AP pelvis DATE: 11/07/2022 08:35 INDICATION: Bilateral hip pain, worsening. No injury. TECHNIQUE: 08/10/2017 right hip COMPARISON: AP pelvis. AP and lateral views of each hip FINDINGS: There is levoscoliosis and degenerative disc disease of the lumbar spine including severe d egenerative disc disease at L3-4 and particularly. Normal alignment at the pubic symphysis and sacroiliac joints. No pelvic fracture or bone destruction . No fracture or dislocation, avascular necrosis or bone destruction of either hip is detected. Hip beth nt spaces are symmetric and well preserved. Abdominal aortic and right common and bilateral femoral artery calcifications are noted. IMPRESSION: Levoscoliosis and degenerative disc disease the lumbar spine No significant abnormality of the hips Reviewed, dictated and finalized at location A.
== END 2022-11-07 08:05 | disposition home or self-care (01) ==
LOC: ANHIMG 08:08
PROVIDERS: PCP Family Medicine; Visit Provider Family Medicine
DX: Z12.2 Encounter for screening for malignant neoplasm of respiratory organs (principal); F17.210 Nicotine dependence, cigarettes, uncomplicated; R10.11 Right upper quadrant pain; M25.551 Pain in right hip; M25.552 Pain in left hip; K82.4 Cholesterolosis of gallbladder; N20.0 Calculus of kidney; M51.36 Other intervertebral disc degeneration, lumbar region
CPT/HCPCS: 71271; 73521; 74018; 76705

== ENCOUNTER 2022-12-04 10:00 | Outpatient (RCR) | payer MEDICARE, SELFPAY ==
--- NOTE | 2022-11-05 11:13 | OPREHPOC ---
Outpatient Therapy Plan of Care This is a Multidisciplinary Plan of Care that may contain components documented by all disciplines (PT, OT, and ST.) PT Problem 1 PT Problem #1 Knowledge Deficit PT Goal 1 Goal 1* indep with HEP PT Problem 2 PT Problem #2 Pain PT Goal 1 Goal 1* pt report pain rating at worst at 7/10 PT Problem 3 PT Problem #3 Impaired Strength PT Goal 1 Goal 1* pt perform R and L mat exercises with 3# ankle wt x 15 reps with good stability single leg standing x 30 seconds with good stability 2* R 3* L PT Problem 4 PT Problem #4 Impaired Flexibility PT Goal 1 Goal supine 1* R hip flexion 105' 2* L hip flexion 105' 3* R SLR hamstring length 50' 4* L SLR hamstring length 50'
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
--- NOTE | 2022-11-12 11:33 | PCPTNOTE ---
Patient did not show up for scheduled appointment this date.
--- NOTE | 2022-12-04 10:30 | PTOPDC ---
Assessment and note entered by Elda Polk, PT Evaluation Information Assessment Status Discharge Diagnosis pain in R and L hips Onset past year Subjective Information doing better, hips hurt when sit too long- about 1 hour, then stiff when get up and have to walk; using bicycle for exercises, 10 min- 2x/day; Reported Pain Level Pain Score Self Report Additional Pain Score Comments pain range of 0-10/10; both hips with first standing up from sitting too long; once walk 20- 30' and it is better; Assessment PT Clinical Summary Reji has received 4 PT sessions and did not show for 1 appointment. Compared to the initial evaluation: pain rating the same at 0-10/10; main activity that increases his hip pain is sitting about 1 hour, then standing up to walk has hip pain, that eases after walking 20-30'; increase in hip and trunk strength; increase flexibility of R and L hamstring and hip flexion motions; education for HEP and posture completed. The goals were partially achieved. Discharge PT services. He is to continue with HEP Plan of Care PT Services Indicated No
== END 2022-12-04 11:41 | disposition home or self-care (01) ==
LOC: ANHPT 10:00
PROVIDERS: PCP Family Medicine; Visit Provider Family Medicine
DX: M25.551 Pain in right hip (principal); M25.552 Pain in left hip
CPT/HCPCS: 97110; 97161; 97530; 99199

== ENCOUNTER 2023-06-03 08:07 | Outpatient (CLI) | payer MEDICARE, SELFPAY ==
--- NOTE | ~2023-06-03 | XR_ITS ---
EXAMINATION: XR abdomen obstructive series DATE: 06/03/2023 08:30 INDICATION: Right upper quadrant abdominal pain. TECHNIQUE: Upright and supine views of the abdomen on 3 radiographs were obtained. COMPARISON: Abdomen radiographs 11/07/2022 FINDINGS: There are no dilated loops of bowel. There is a moderate volume of stool in the colon. No f ree intraperitoneal gas. Calcifications in the pelvis are likely phleboliths. IMPRESSION: 1. Normal bowel gas pattern. Reviewed, dictated and finalized at location A.
--- NOTE | ~2023-06-03 | US_ITS ---
Limited Abdominal Sonogram: Real-time sonographic imaging of the right upper quadrant was performed. Clinical History: Right upper quadrant pain Findings: The liver appears normal with no evidence of mass lesion or bile duct dilatation. Main por carmela vein demonstrates normal direction of flow. The gallbladder is well distended, and times is proba ble minimal sludge/debris. The common bile duct measures 3 mm. The visualized pancreas, aorta, and I VC are unremarkable. Impression: Probable minimal gallbladder sludge/debris. Reviewed, dictated and finalized at location M. Impression: Probable minimal gallbladder sludge/debris.
== END 2023-06-03 08:08 ==
PROVIDERS: PCP Family Medicine; Visit Provider Family Medicine
DX: R10.11 Right upper quadrant pain (principal)
CPT/HCPCS: 74019; 76705

== ENCOUNTER 2023-08-28 01:00 | Day surgery (SDC) | payer MEDICARE, SELFPAY ==
[2023-08-06 12:59] VITALS: BMI 27.3
--- NOTE | 2023-08-12 10:36 | PC.NURSE ---
Spoke with patient regarding medication PLAVIX. Pt. verbalizes understanding that the last dose of PLAVIX is to be taken on 08/23/2023 and the Endoscopist will instruct them when to restart after the procedure. Patient instructed to remain on Aspirin.
[2023-08-28 07:44] VITALS: BP 106/79; PULSE 84; RESP 18; TEMP 36; O2SAT 99; BMI 26.9
[2023-08-28] MEDS: LACTATED RINGERS 1,000 ML 150 ML IV CONT (07:58)
[2023-08-28 08:00] LABS: Glucose Point of Care 169 mg/dl (65-105)
--- NOTE | 2023-08-28 08:05 | WPDANESEPPF ---
Anes - Initial Pre Proc Eval Procedure: Operation Date: 08/28/23 09:00 Proposed Procedures p Colonoscopy - Levi Hazel MD Date/Time: 08/28/23 08:05 Surgeon: Levi Hazel MD Pre Op Diagnosis: Positive Cologuard Patient Data Age: 73 Gender: M Height: 1.73 m Weight: 80.4 kg Last Vital Signs Temp 96.8 F L 08/28/23 07:44 Pulse 84 08/28/23 07:44 Resp 18 08/28/23 07:44 BP 106/79 08/28/23 07:44 Pulse Ox 99 08/28/23 07:44 O2 Del Method Room Air 08/28/23 07:44 Allergies Allergy/AdvReac Type Severity Reaction Status Date / Time Penicillins Allergy Unknown Rash Verified 08/28/23 07:40 Home Medications Medication Instructions Recorded Confirmed Type cholecalciferol (vitamin D3) 50 50 mcg PO DAILY 03/06/20 08/28/23 History mcg (2,000 unit) capsule magnesium oxide 400 mg PO DAILY 03/06/20 08/28/23 History aspirin 81 mg chewable tablet 81 mg PO DAILY@0800 #30 tabs 07/03/21 08/28/23 Rx (Children's Aspirin) pen needle, diabetic 32 gauge x #50 ea 02/04/22 08/28/23 History (TRUEplus Pen Needle) clopidogrel 75 mg tablet 75 mg PO DAILY 06/02/22 08/28/23 History flash glucose scanning reader #1 ea 06/02/22 08/28/23 Rx (FreeStyle Juliann 2 [place]) blood sugar diagnostic (OneTouch #100 strips 10/13/22 08/28/23 Rx Verio test strips) flash glucose sensor (FreeStyle #6 ea 04/06/23 08/28/23 Rx Juliann 2 Sensor kit) rosuvastatin 20 mg tablet (Crestor) 20 mg PO DAILY #90 tabs 04/27/23 08/28/23 Rx empagliflozin 12.5 mg-linaglipt 2 tablet PO QAM #60 ea 06/04/23 08/28/23 Rx 2.5 mg-metform ER 1,000 mg tablet,24hr (Trijardy XR) glimepiride 2 mg tablet See Rx Instructions PO QAM #240 06/04/23 08/28/23 Rx tabs glucagon 3 mg/actuation nasal spray 3 mg intranasal ONCE #2 ea 06/04/23 08/28/23 Rx polyethylene glycol 3350 17 17 g PO DAILY #510 grams 06/10/23 08/28/23 Rx gram/dose oral powder (Miralax) lisinopril 10 mg tablet 10 mg PO DAILY 08/06/23 08/28/23 History tirzepatide 2.5 mg/0.5 mL 2.5 mg subcut WEEKLY 08/06/23 08/28/23 History subcutaneous pen injector (Mounjaro) triamcinolone acetonide 0.5 % 1 applic topical BID PRN rash 08/06/23 08/28/23 History topical cream bilateral legs tirzepatide 5 mg/0.5 mL 5 mg (0.5 mL) subcut WEEKLY #2 mL 08/13/23 08/28/23 Rx subcutaneous pen injector (Mounjaro) hydrochlorothiazide 25 mg tablet See Rx Instructions .Route 08/26/23 08/28/23 Rx .COMPLEX #90 tabs Laboratory Tests 08/28/23 07:57 POC Capillary Glucose 169 H mg/dl (65-105) Patient hx anesthesia problems: none Family hx anesthesia problems: none Results Review: All pre-operative results and documents have been reviewed as part of the pre-operative evaluation. [facility] Past Medical History Medical History FLOR (acute kidney injury) Arthritis CAD in [place] artery Dissection of right femoral artery Dyslipidemia Dysphagia Elevated PSA Essential hypertension Impaired fasting glucose Other spondylosis with radiculopathy, lumbar region Positive colorectal cancer screening using Cologuard test Primary osteoarthritis of right hip ST elevation (STEMI) myocardial infarction Type 2 diabetes mellitus Surgical History Surgical History H/O hand surgery left middle finger tip removed H/O heart artery stent Family History Family History Mother Cardiac arrest Diabetes mellitus Cerebrovascular accident Father Heart disease Sibling Family history of cardiovascular disease CHF (congestive heart failure) Hypertension Social History Social History Smoking packs per day: 0.5 Smoking cigarettes per day: 10.0 Years smoked: 45 Smoking pack-years: 22.50 Smoking status: Current ever
--- NOTE | 2023-08-28 08:13 | PM.HPGS ---
History of Present Illness History of Present Illness Consent: Risks, benefits, and alternatives have been discussed and questions answered. Patient agrees to proceed with procedure. Chief complaint: Positive Cologuard Narrative: Reji Heredia is a 73 year old male here for first colonoscopy, + cologuard Review of Systems Review of Systems: All systems reviewed & are unremarkable except as noted in HPI and below PMFSH Past Medical History Medical History FLOR (acute kidney injury) Arthritis CAD in [place] artery Dissection of right femoral artery Dyslipidemia Dysphagia Elevated PSA Essential hypertension Impaired fasting glucose Other spondylosis with radiculopathy, lumbar region Positive colorectal cancer screening using Cologuard test Primary osteoarthritis of right hip ST elevation (STEMI) myocardial infarction Type 2 diabetes mellitus Surgical History Surgical History H/O hand surgery left middle finger tip removed H/O heart artery stent Family History Family History Mother Cardiac arrest Diabetes mellitus Cerebrovascular accident Father Heart disease Sibling Family history of cardiovascular disease CHF (congestive heart failure) Hypertension Social History Social History Smoking packs per day: 0.5 Smoking cigarettes per day: 10.0 Years smoked: 45 Smoking pack-years: 22.50 Smoking status: Current every day smoker Tobacco type: cigarettes Second hand tobacco smoke exposure: Yes Additional smoking assessment comments: SMOKES ONLY 2-3 CIGS A DAY Alcohol intake: current Alcohol use details: quit a long time ago Substance use: never Substance use type: does not use Lack of Transportation: No Lack of Food: Never True Current Housing: I Have Housing Concerned About Future Housing: No Difficulty Paying Gas/Electric Bills: YES Difficulty Paying for Meds: YES Education: High School Diploma/GED Difficulty w/ Childcare or Family Care: No Living arrangements: with family Spiritual care concerns: No Meds Home Medications and Allergies Home Medications Medication Instructions Recorded Confirmed Type cholecalciferol (vitamin D3) 50 50 mcg PO DAILY 03/06/20 08/28/23 History mcg (2,000 unit) capsule magnesium oxide 400 mg PO DAILY 03/06/20 08/28/23 History aspirin 81 mg chewable tablet 81 mg PO DAILY@0800 #30 tabs 07/03/21 08/28/23 Rx (Children's Aspirin) pen needle, diabetic 32 gauge x #50 ea 02/04/22 08/28/23 History (TRUEplus Pen Needle) clopidogrel 75 mg tablet 75 mg PO DAILY 06/02/22 08/28/23 History flash glucose scanning reader #1 ea 06/02/22 08/28/23 Rx (FreeStyle Juliann 2 [place]) blood sugar diagnostic (OneTouch #100 strips 10/13/22 08/28/23 Rx Verio test strips) flash glucose sensor (FreeStyle #6 ea 04/06/23 08/28/23 Rx Juliann 2 Sensor kit) rosuvastatin 20 mg tablet (Crestor) 20 mg PO DAILY #90 tabs 04/27/23 08/28/23 Rx empagliflozin 12.5 mg-linaglipt 2 tablet PO QAM #60 ea 06/04/23 08/28/23 Rx 2.5 mg-metform ER 1,000 mg tablet,24hr (Trijardy XR) glimepiride 2 mg tablet See Rx Instructions PO QAM #240 06/04/23 08/28/23 Rx tabs glucagon 3 mg/actuation nasal spray 3 mg intranasal ONCE #2 ea 06/04/23 08/28/23 Rx polyethylene glycol 3350 17 17 g PO DAILY #510 grams 06/10/23 08/28/23 Rx gram/dose oral powder (Miralax) lisinopril 10 mg tablet 10 mg PO DAILY 08/06/23 08/28/23 History tirzepatide 2.5 mg/0.5 mL 2.5 mg subcut WEEKLY 08/06/23 08/28/23 History subcutaneous pen injector (Yudelka) triamcinolone acetonide 0.5 % 1 applic topical BID PRN rash 08/06/23 08/28/23 History topical cream bilateral legs tirzepatide 5 mg/0.5 mL 5 mg (0.5 mL) subcut WEEKLY #2 mL 08/13/23 08/28/23 Rx
[2023-08-28 08:48] VITALS: BP 87/61; PULSE 80; RESP 18; O2SAT 94
[2023-08-28 08:58] VITALS: BP 90/61; PULSE 82; RESP 18; O2SAT 94
[2023-08-28 09:05] VITALS: BP 101/70; PULSE 73; RESP 18; O2SAT 95
== END 2023-08-28 10:10 | disposition home or self-care (01) ==
PROVIDERS: PCP Family Medicine; Referring Provider Family Medicine; Visit Provider Internal Medicine Gastroenterology
PROC: 0DJD8ZZ Inspection of Lower Intestinal Tract, Via Natural or Artificial Opening Endoscopic (ICD-10-PCS; CPT 45378; principal; 2023-08-28 09:00)
DX: C20 Malignant neoplasm of rectum (principal); D12.4 Benign neoplasm of descending colon; N17.9 Acute kidney failure, unspecified; I25.10 Atherosclerotic heart disease of native coronary artery without angina pectoris; E78.5 Hyperlipidemia, unspecified; I10 Essential (primary) hypertension; E11.9 Type 2 diabetes mellitus without complications; F17.210 Nicotine dependence, cigarettes, uncomplicated; Z79.82 Long term (current) use of aspirin; Z79.02 Long term (current) use of antithrombotics/antiplatelets; Z79.84 Long term (current) use of oral hypoglycemic drugs; Z79.85 Long-term (current) use of injectable non-insulin antidiabetic drugs; Z98.890 Other specified postprocedural states; Z95.5 Presence of coronary angioplasty implant and graft; Z82.49 Family history of ischemic heart disease and other diseases of the circulatory system
CPT/HCPCS: 45385; 82948; 88305; 88342; J2704; J7120

== ENCOUNTER 2023-12-18 07:12 | Outpatient (CLI) | payer MEDICARE, SELFPAY ==
--- NOTE | ~2023-12-18 | NM_ITS ---
EXAMINATION: NM bone scan whole body DATE: 12/18/2023 12:00 INDICATION: Prostate cancer. TECHNIQUE: 24.5 mCi Tc-99m HDP was administered intravenously. Delayed whole-body scintigrams were o btained. COMPARISON: CT abdomen and pelvis 12/18/2023 FINDINGS: There is disc-centered increased activity at L3-L4 correlating with severe degenerative dis c disease by CT. There is joint-centered increased activity in left shoulder without radiographic com parison, likely osteoarthritis. IMPRESSION: 1. No evidence of metastatic disease. Reviewed, dictated and finalized at location A.
--- NOTE | ~2023-12-18 | CT_ITS ---
EXAMINATION: CT abdomen pelvis w con DATE: 12/18/2023 07:39 INDICATION: Prostate cancer. TECHNIQUE: Computed tomography (CT) of the abdomen and pelvis was performed with 100 mL Omnipaque 350 intravenous contrast. Automated exposure control and iterative reconstruction technique were employe d. The dose-length product was 413.17 mGy-cm. COMPARISON: Chest CT 11/07/2022 FINDINGS: The visualized portions of the lung bases are clear without pneumonia or pleural effusion. The heart size is normal. There are coronary artery calcifications. No pericardial effusion. The live r, gallbladder, spleen, pancreas, and adrenal glands are normal. There is cortical thinning of the ki dneys. There are cysts in left kidney measuring up to 7 mm. The prostate is moderately enlarged. Ther e are no dilated loops of bowel. The appendix is normal. There is calcified atherosclerosis of the ao rta and many of the other arteries. There is moderate stenosis of the common iliac arteries. There ar e no pathologically enlarged lymph nodes. There is no free intraperitoneal fluid. There is severe lum bar spondylosis. IMPRESSION: 1. No evidence of metastatic disease. Reviewed, dictated and finalized at location A.
[2023-12-18 07:33] LABS: Estimated Glomerular Filt Rate 35
== END 2023-12-18 07:13 | disposition home or self-care (01) ==
PROVIDERS: PCP Family Medicine; Visit Provider Urology
DX: C61 Malignant neoplasm of prostate (principal)
CPT/HCPCS: 74177; 78306; A9503; Q9967

== ENCOUNTER 2024-06-02 08:46 | Outpatient (CLI) | payer MEDICARE, SELFPAY ==
--- OUTSIDE RECORDS SUMMARY | 2024-06-02 08:55 | XMS_ITS | Clinical Summary ---
Author Organization [facility] [place] [address] [facility] [address] [facility] [address] [place] [address] Care Team Providers Care Finger Cobbler Name Role Phone Brooks Sin MD Primary Care Provider [phone] [phone] Allergies Active Allergy Reactions Criticality Noted Date Comments Penicillins Medications metFORMIN (GLUMETZA) 1,000 mg 24 hr tablet Take 1,000 mg by mouth 2 (two) times a day with meals. Active LORazepam (ATIVAN) 0.5 mg tablet Take 0.5 mg by mouth every 6 (six) hours as needed for anxiety. Active Jardiance 25 mg tablet Take 1 tablet (25 mg total) by mouth daily 2 Active nitroglycerin (NITROSTAT) 0.[address] 1 TABLET UNDER THE TONGUE EVERY 5 MINUTES NEEDED FOR CHEST PAIN 2 Active rosuvastatin (CRESTOR) 20 mg tablet Take 1 tablet (20 mg total) by mouth daily 2 Active TOUJEO MAX 300 unit/mL (3 mL) pen for injection Inject 55 Units under the skin daily 2 Active Vascepa 1 gram capsule Take 2 capsules (2 g total) by mouth 2 (two) times a day 2 Active hydroCHLOROthia zide (HYDRODIURIL) 25 mg tablet Take 1 tablet (25 mg total) by mouth daily 2 Active glimepiride (AMARYL) 2 mg tablet TAKE 1 TABLET BY MOUTH TWICE DAILY WITH MEALS AND WITH BREAKFAST AND DINNER 2 Active lisinopriL (PRINIVIL,ZESTR [place]) 10 mg tablet TAKE 1 TABLET BY MOUTH DAILY 90 tablet 3 3 Active Additional Information Patient taking differently: 40 mg oral Daily, Reported on 10/23/2022 Trijardy XR 12.5-2.5-1,000 mg tablet, IR & ER, biphasic 24hr Take 2 tablets by mouth every morning 3 Active clopidogreL (PLAVIX) 75 mg tablet TAKE 1 TABLET(75 MG) BY MOUTH DAILY 90 tablet 3 4 Active Mounjaro 5 mg/0.5 mL pen injector ADMINISTER 5 MG UNDER THE SKIN WEEKLY 4 Active aspirin 81 mg chewable tablet CHEW AND SWALLOW 1 TABLET BY MOUTH DAILY AT 8 AM 90 tablet 3 4 Active metoprolol XL (TOPROL-XL) 50 mg extended release tablet TAKE 1 TABLET(50 MG) BY MOUTH EVERY MORNING 90 tablet 1 5 Active Active Problems Problem Noted Date Diagnosed Date 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 07/19/2021 Dyslipidemia 07/19/2021 Essential hypertension 07/19/2021 Coronary artery disease invo lving [place] coronary artery of [place] heart without angina pectoris 07/19/[address] elevation myocardial infarction (S LOVELY) 07/19/2021 Family history of early CAD 09/23/2016 Surgical History Surgery Date Site/Laterality Comments CAROTID STENT Medical History Medical History Date Comments Hyperlipidemia Hypertension Diabetes mellitus (HCC) Family History Medical History Relation Name Comments Heart disease Father Heart failure Father Heart disease Mother Heart failure Mother Relation Name Status Comments Father Mother Social History Tobacco Use Types Packs/Day Years Used Date Smoking Tobacco: Former Cigarettes Q uit: 07/16/2021 Smokeless Tobacco: Never Tobacco Cessation:Counseling Given: Not Answered Alcohol Use Standard Drinks/Week Comments No 0 (1 standard drink = 0.6 oz pur e alcohol) AUDIT-C Answer Date Recorded Q1: How often do you have a drink containing alc ohol? 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 Gender Identity Not on file Sexual Orientation Not on file Obstetrics History Last Filed Vital Signs Vital Sign Reading Time Taken Comments Blood Pressure 100/60 10/29/2023 8:54 AM CDT Pulse 80 10/29/2023 8:54 AM CDT Temperature - - Respiratory Rate 16 11/05/2016 10:29 AM CDT Oxygen Saturation 97% 10/29/2023 8:54 AM CDT Inhaled Oxygen Concentration - - Weight 70.8 kg (156 lb) 10/29/2023 8:54 AM CDT Height 172.7 cm (5' 8 ) 10/29/2023 8:54 AM CDT Body Mass Index 23.72 10/29/2023 8:54 AM CDT Plan of Treatment Health Maintenance Due Date Last Done Comments Albumin Creatinine Ratio, Urine 1951 Colon Cancer Screening-Colonoscopy 1951 Depression Screening 1951 Fall Risk Assessment 1950 Hemoglobin A1C 1951 Hepatitis C Screening 1950 eGFR 1950 Dilated Eye Exam 1951 Foot Exam 1951 Hepatitis B Screening 04/28/1969 Pneumococcal vaccine 65+ (1 of 2 - PCV) 04/28/1970 Zoster Vaccine (1 of 2) 04/28/2001 Abdominal Aortic Aneurysm (A AA) Screen 04/28/2016 Well Visit 65+ 04/28/2016 Influenza Vaccine (Season Ended) 2024 Lipid Panel 10/28/2024 10/29/2023, 09/25, 07/19/2021 DTaP/Tdap/Td Vaccine (2 - Td or Tdap) 05/06/2033 Procedures Procedure Name Priority Date/Time Associated Diagnosis Comments POCT LIPID PANEL Routine 10/29/2023 10:2 1 AM CDT Coronary artery disease involving [place] coronary artery of [place] heart without angina pectoris from Last 3 Months or Most Recently Relevant to Health Maintenance Results * POCT lipid panel (10/29/2023 10:21 AM CDT) Cholesterol, POC 110 mg/dL Comment:GLU 140 HDL, POC 36 mg/dL Triglycerides, POC 141 mg/dL LDL Cholesterol POC 46 mg/dL Chol/HDL Ratio, POC 1.3 Non-HDL Cholesterol, POC 74 mg/dL Cholesterol Total, POC 110 mg/dL Capillary blood 10/29/2023 1 0:21 AM CDT Chad Muir MD POINT OF CARE TEST ORDER NEVAEH Final Result from Last 3 Months or Most Recently Relevant to Health Maintenance Insurance MEDICARE ADVANTAGE MEDICARE ADVANTAGE Member Subscriber Plan / Payer (Ef fective 2021-Present) Name:Reji Heredia Relation to Subscriber:Self Name:Reji Heredia Payer ID:[id number] (NAIC) Type:[facility] MEDICARE Address: [place] [id number] [place] [id number] MEDICARE ADVANTAGE Care Teams Finger Cobbler Relationship Specialty Start Date End Date Brooks Sin MD PCP - General Family Practice 10/23/22
--- OUTSIDE RECORDS SUMMARY | 2024-06-02 08:55 | XMS_ITS | Referral Summary ---
Author Organization [facility] [place] [address] [facility] 162 Address [address] [facility] 162 [place] [address] Care Team Providers Care Hip Hop Dancer Name Role Phone Brooks Sin MD Primary Care Provider [phone] [phone] Allergies Active Allergy Reactions Criticality Noted Date [...] hypertension 07/19/2021 Coronary artery disease invo lving [place] coronary artery of [place] heart without angina pectoris 07/19/[address] elevation myocardial infarction (S LOVELY) 07/19/2021 Family history of early CAD 09/23/2016 Social History Tobacco Use Types Packs/Day Years [...] on file 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 Gender Identity Not on file Sexual Orientation Not on file Last Filed Vital Signs Vital Sign Reading [...] 10/29/2023 8:54 AM CDT Plan of Treatment Not on file Procedures Procedure Name Priority Date/Time Associated Diagnosis Comments POCT LIPID PANEL Routine 10/29/2023 10:2 1 AM CDT Coronary artery disease involving [place] coronary artery of [place] heart without angina pectoris from Last 3 [...] Most Recently Relevant to Health Maintenance Insurance [facility] MEDICARE ADVANTAGE [id number] MEDICARE ADVANTAGE [facility] MEDICARE ADVANTAGE Care Teams Hip Hop Dancer Relationship Specialty Start Date End Date Brooks Sin MD PCP - General Family Practice 10/23/22
== END 2024-06-02 08:47 | disposition home or self-care (01) ==
LOC: ANHAUDIO 08:47
PROVIDERS: PCP Family Medicine; Visit Provider Family Medicine
DX: H91.90 Unspecified hearing loss, unspecified ear (principal); E11.9 Type 2 diabetes mellitus without complications; I25.10 Atherosclerotic heart disease of native coronary artery without angina pectoris; I10 Essential (primary) hypertension; E78.49 Other hyperlipidemia; F17.210 Nicotine dependence, cigarettes, uncomplicated
CPT/HCPCS: 92557; 92567

== ENCOUNTER 2024-08-25 01:31 | Day surgery (SDC) | payer MEDICARE, SELFPAY ==
[2024-08-08 11:49] VITALS: BMI 23.4
--- NOTE | 2024-08-11 09:33 | PC.NURSE ---
Pt required assistance setting up transportation with [facility]- I called and gave information needed to set up round trip transportation and relayed this to patient. He will be picked up at his home at 1136 am and transported to hospital and will be picked up at hospital after procedure at approx 1500. Information is provided for national van truck driver with number to dept. for national van truck driver if he has any questions upon arrival. Ride # confirmation [id number] for pickle processor and #[phone] for return transport.
--- NOTE | 2024-08-11 09:37 | PC.NURSE ---
Spoke with patient regarding medication Plavix. Patient verbalizes understanding that the last dose is to be taken on 08/17/24 and the Endoscopist will instruct them when to restart after the procedure.
--- OUTSIDE RECORDS SUMMARY | 2024-08-25 01:33 | XMS_ITS | Clinical Summary ---
Author Organization [facility] [place] [address] [facility] [address] [facility] 162 [place] [address] Care Team Providers Care Force Adjustment Supervisor Name Role Phone Brooks Sin MD Primary Care Provider [phone] [phone] Allergies Active Allergy Reactions Criticality Noted Date Comments Penicillins Medications metFORMIN (GLUMETZA) 1,000 mg 24 hr tablet Take 1,000 mg by mouth 2 (two) times a day with meals. Active LORazepam (ATIVAN) 0.5 mg tablet Take 0.5 mg by mouth every 6 (six) hours as needed for anxiety. Active Jardiance 25 mg tablet Take 1 tablet (25 mg total) by mouth daily 05/04/19 22 Active nitroglycerin (NITROSTAT) 0.[address] 1 TABLET UNDER THE TONGUE EVERY 5 MINUTES NEEDED FOR CHEST PAIN 07/04/19 22 Active rosuvastatin (CRESTOR) 20 mg tablet Take 1 tablet (20 mg total) by mouth daily 05/17/19 22 Active TOUJEO MAX 300 unit/mL (3 mL) pen for injection Inject 55 Units under the skin daily 10/02/19 22 Active Vascepa 1 gram capsule Take 2 capsules (2 g total) by mouth 2 (two) times a day 10/04/19 22 Active hydroCHLOROthi azide (HYDRODIURIL) 25 mg tablet Take 1 tablet (25 mg total) by mouth daily 08/10/19 22 Active glimepiride (AMARYL) 2 mg tablet TAKE 1 TABLET BY MOUTH TWICE DAILY WITH MEALS AND WITH BREAKFAST AND DINNER 10/02/19 22 Active Mounjaro 5 mg/0.5 mL pen injector ADMINISTER 5 MG UNDER THE SKIN WEEKLY 09/24/19 24 Active aspirin 81 mg chewable tablet CHEW AND SWALLOW 1 TABLET BY MOUTH DAILY AT 8 AM 90 tablet 3 11/02/19 24 Active metoprolol XL (TOPROL-XL) 50 mg extended release tablet TAKE 1 TABLET(50 MG) BY MOUTH EVERY MORNING 90 tablet 1 03/01/19 25 Active Synjardy XR 12.5-1,000 mg tablet, IR & ER, biphasic 24hr Take 2 tablets by mouth every morning 06/22/19 25 Active lisinopriL (PRINIVIL,ZEST RIL) 40 mg tablet Take 1 tablet (40 mg total) by mouth daily Active clopidogreL (PLAVIX) 75 mg tablet TAKE 1 TABLET(75 MG) BY MOUTH DAILY 90 tablet 3 08/12/19 25 Active clopidogreL (PLAVIX) 75 mg tablet TAKE 1 TABLET(75 MG) BY MOUTH DAILY 90 tablet 3 06/01/19 24 025 Discontinued Active Problems Problem Noted Date Diagnosed Date 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 07/19/2021 Dyslipidemia 07/19/2021 Essential hypertension 07/19/2021 Coronary artery disease invo lving [place] coronary artery of [place] heart without angina pectoris 07/19/[address] elevation myocardial infarction (S LOVELY) 07/19/2021 Family history of early CAD 09/23/2016 Encounters Date Type Department Care Team Description 07/14/2024 8:00 AM CDT Office Visit [facility] Cardiology [address] [place] [address] Chad Muir MD History of ST elevation myocardial infarction (STEMI) (Primary Dx); Coronary artery disease involving [place] coronary artery of [place] heart without angina pectoris from Last 3 Months Surgical History Surgery Date Site/Laterality Comments CAROTID [...] of Binge Drinking Not on file 06/24 Sex and Gender Information Value Date Recorded Sex Assigned at Not on file 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 Gender Identity Not on file Sexual Orientation Not on file Obstetrics History Last Filed Vital Signs Vital Sign Reading Time Taken Comments Blood Pressure 110/68 07/14/2024 7:46 AM CDT Pulse 75 07/14/2024 7:46 AM CDT Temperature - - Respiratory Rate 16 11/05/2016 10:2 9 AM CDT Oxygen Saturation 98% 07/14/2024 7:46 AM CDT Inhaled Oxygen Concentration - - Weight 74.8 kg (164 lb 12.8 oz) 07/14/2024 7:46 AM CDT Height 172.7 cm (5' 8) 07/14/2024 7:46 AM CDT Body Mass Index 25.06 07/14/2024 7:46 AM CDT Plan of Treatment Health Maintenance [...] Influenza Vaccine (Season Ended) 2024 Lipid Panel 07/14/2025 07/14/2024, 09/0 06/2023, 10/23/2022, Additional history exists DTaP/Tdap/Td Vaccine (2 - Td or Tdap) 05/06/2033 05/07/2023 Procedures Procedure Name Priority Date/Time Associated Diagnosis Comments POCT LIPID PANEL Routine 07/14/2024 8:14 AM CDT Coronary artery disease involving [place] coronary artery of [place] heart without angina pectoris from Last 3 Months Results * (ABNORMAL) POCT lipid panel (07/14/2024 8:14 AM CDT) Cholesterol, POC 138 <200 MG/DL HDL, POC 36(A) >=40 mg/dL Triglycerides, POC 109 <=149 mg/dL LDL Cholesterol POC 80 <=129 mg/dL Chol/HDL Ratio, POC 2.2 NONE Non-HDL Cholesterol, POC 102 NONE mg/dL Cholesterol Total, POC 138 30 - 199 mg/dL Capillary blood 07/14/2024 8 :14 AM CDT Chad Muir MD POINT OF CARE TEST ORDER NEVAEH Final Result from Last 3 Months Insurance MEDICARE ADVANTAGE MEDICARE ADVANTAGE [facility] MEDICARE ADVANTAGE Care Teams Force Adjustment Supervisor Relationship Specialty Start Date End Date Brooks Sin MD PCP - General Family Practice 10/23/22
--- OUTSIDE RECORDS SUMMARY | 2024-08-25 01:33 | XMS_ITS | Referral Summary ---
Author Organization [facility] [place] [address] [facility] 162 Address [address] [facility] 162 [place] [address] Care Team Providers Care Circuit Rider Name Role Phone Brooks Sin MD Primary Care Provider [phone] [phone] Encounters Date Type Department Care Team Description 07/14/2024 8:00 AM CDT Office Visit 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 Gender Identity Not on file Sexual Orientation [...] 07/14/2024 7:46 AM CDT Plan of Treatment Not on file Procedures Procedure Name Priority Date/Time Associated Diagnosis Comments POCT LIPID PANEL Routine 07/14/2024 8:14 AM CDT Coronary artery disease involving [place] coronary artery of [place] heart without angina pectoris from Last 3 [...] Final Result from Last 3 Months Insurance [facility] MEDICARE ADVANTAGE [facility]ENTER MEDICARE Address: [place] [id number] MEDICARE ADVANTAGE MEDICAL [facility]ENTER MEDICARE Address: [place] [id number] MEDICARE ADVANTAGE MEDICAL CENTER MEDICARE Address: [address] [address] Care Teams Circuit Rider Relationship Specialty Start Date End Date Brooks Sin MD PCP - General Family Practice 10/23/22
[2024-08-25 12:39] VITALS: BP 117/76; PULSE 97; RESP 18; TEMP 36.3; O2SAT 99
--- NOTE | 2024-08-25 12:56 | WPDANESEPPF ---
Anes - Initial Pre Proc Eval Procedure: Operation Date: 08/25/24 13:30 Proposed Procedures p Colonoscopy - Ethan Welch MD Date/Time: 08/25/24 12:56 Surgeon: Ethan Welch MD Pre Op Diagnosis: Rectal polyp Patient Data Age: 74 Gender: M Height: 1.73 m Weight: 67.5 kg Last Vital Signs Temp 36.3 C L 08/25/24 12:39 Pulse 97 08/25/24 12:39 Resp 18 08/25/24 12:39 BP 117/76 08/25/24 12:39 Pulse Ox 99 08/25/24 12:39 O2 Del Method Room Air 08/25/24 12:39 Allergies Allergy/AdvReac Type Severity Reaction Status Date / Time No Known Allergies Allergy Verified 08/25/24 12:34 Home Medications ?Medication ?Instructions ?Recorded ?Confirmed ?Type cholecalciferol (vitamin D3) 50 50 mcg PO DAILY 03/06/20 08/25/24 History mcg (2,000 unit) capsule aspirin 81 mg chewable tablet 81 mg PO DAILY@0800 #30 tabs 07/03/21 08/25/24 Rx ([facility] Aspirin) clopidogrel 75 mg tablet 75 mg PO DAILY 06/02/22 08/25/24 History flash glucose scanning reader #1 ea 06/02/22 08/03/24 Rx (FreeStyle Juliann 2 [place]) blood sugar diagnostic (OneTouch #100 strips 10/13/22 08/03/24 Rx Verio test strips) triamcinolone acetonide 0.5 % 1 applic topical BID PRN rash 08/06/23 08/08/24 History topical cream bilateral legs metoprolol succinate 50 mg 50 mg PO DAILY 10/14/23 08/25/24 History tablet,extended release 24 hr empagliflozin 12.5 mg-metformin ER 2 tablet (2 x 12.5-1,000 mg) PO 04/11/24 08/25/24 Rx 1,000 mg tablet,extended rel 24 hr QAM 90 days #180 ea (Synjardy XR) glucagon 3 mg/actuation nasal spray 3 mg intranasal ONCE #2 ea 04/11/24 08/08/24 Rx insulin degludec 200 unit/mL (3 20 unit (0.1 mL) subcut DAILY #9 mL 04/11/24 08/25/24 Rx mL) subcutaneous pen (Tresiba FlexTouch U-200 insulin) pen needle, diabetic 32 gauge x #100 ea 04/11/24 08/03/24 Rx 5/32 (TRUEplus Pen Needle) lisinopril 40 mg tablet 40 mg PO DAILY #90 tabs 05/09/24 08/25/24 Rx tirzepatide 7.5 mg/0.5 mL 7.5 mg (0.5 mL) subcut WEEKLY #2 mL 05/19/24 08/25/24 Rx subcutaneous pen injector (Mounjaro) rosuvastatin 20 mg tablet (Crestor) 20 mg PO DAILY #100 tabs 06/13/24 08/25/24 Rx flash glucose sensor (FreeStyle #6 ea 07/25/24 08/03/24 Rx Juliann 2 Sensor kit) hydrochlorothiazide 25 mg tablet 25 mg PO DAILY #90 tabs 08/08/24 08/25/24 Rx Patient hx anesthesia problems: none Family hx anesthesia problems: none Results Review: All pre-operative results and documents have been reviewed as part of the pre-operative evaluation. REPLACED BY [facility] Past Medical History Medical History Rectal polyp Type 2 diabetes mellitus Primary osteoarthritis of right hip Other spondylosis with radiculopathy, lumbar region CAD in [place] artery FLOR (acute kidney injury) Dissection of right femoral artery ST elevation (STEMI) myocardial infarction Positive colorectal cancer screening using Cologuard test Impaired fasting glucose Elevated PSA Dysphagia Essential hypertension Dyslipidemia Arthritis Surgical History Surgical History H/O heart artery stent H/O hand surgery left middle finger tip removed Family History Family History Mother Cardiac arrest Diabetes mellitus Cerebrovascular accident Father Heart disease Sibling Family history of cardiovascular disease CHF (congestive heart failure) Hypertension Social History Social History Smoking packs per day: 0.5 Smoking cigarettes per day: 10.0 Years smoked: 45 Smoking pack-years: 22.50 Smoking status: Current every day smoker Tobacco type: cigarettes Second hand tobacco smoke exposure: Yes Additional smoking assessment comments: SMOKES ONLY 2-3 CIGS A DAY Alcohol intake: current Alcohol use details: quit a long time ago Substance use: never Substance use type: does not use Lack of Transportation: No Lack of Food: Never True Current Housing: I Have Housing Concerned About Future Housing: No Difficulty Paying Gas/Electric Bills: YES Difficulty Paying for Meds: YES Education: High School Diploma/GED Difficulty w/ Childcare or Family Care: No Living arrangements: with family Spiritual care concerns: No Anes - Eval Final PreProcedure Day of Procedure 08/25/24 12:56 Patient weight: normal Heart: regular rate and rhythm Lungs: decreased breath sounds Airway: Mallampati scale class II Neurological: alert and oriented Last oral intake: >/= 8 hours ASA classification: III Emergent: no Anesthetic plan: proceed Anesthesia type and monitoring: general GIVS and standard monitoring Results Review: All pre-operative results and documents have been reviewed as part of the pre-operative evaluation. Informed Consent: The patient's anesthetic plan and its attendant risks and benefits were discussed with the patient/family/POA. Questions were solicited and answers provided to the satisfaction of the patient/family/POA.
[2024-08-25] MEDS: LACTATED RINGERS 1,000 ML 150 ML IV CONT (12:57)
--- NOTE | 2024-08-25 13:23 | PM.IMHP ---
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 Surgery was recommended. Apparently the patient was lost for follow-up and comes today for repeat colonoscopy. Review of Systems Review of Systems: All systems reviewed & are unremarkable except as noted in HPI and below PMFSH Past Medical History Medical History Rectal polyp Type 2 diabetes mellitus Primary osteoarthritis of right hip Other spondylosis with radiculopathy, lumbar region CAD in [place] artery FLOR (acute kidney injury) Dissection of right femoral artery ST elevation (STEMI) myocardial infarction Positive colorectal cancer screening using Cologuard test Impaired fasting glucose Elevated PSA Dysphagia Essential hypertension Dyslipidemia Arthritis Surgical History Surgical History H/O heart artery stent H/O hand surgery left middle finger tip removed Family History Family History Mother Cardiac arrest Diabetes mellitus Cerebrovascular accident Father Heart disease Sibling Family history of cardiovascular disease CHF (congestive heart failure) Hypertension Social History Social History Smoking packs per day: 0.5 Smoking cigarettes per day: 10.0 Years smoked: 45 Smoking pack-years: 22.50 Smoking status: Current every day smoker Tobacco type: cigarettes Second hand tobacco smoke exposure: Yes Additional smoking assessment comments: SMOKES ONLY 2-3 CIGS A DAY Alcohol intake: current Alcohol use details: quit a long time ago Substance use: never Substance use type: does not use Lack of Transportation: No Lack of Food: Never True Current Housing: I Have Housing Concerned About Future Housing: No Difficulty Paying Gas/Electric Bills: YES Difficulty Paying for Meds: YES Education: High School Diploma/GED Difficulty w/ Childcare or Family Care: No Living arrangements: with family Spiritual care concerns: No Meds Home Medications and Allergies Home Medications ?Medication ?Instructions ?Recorded ?Confirmed ?Type cholecalciferol (vitamin D3) 50 50 mcg PO DAILY 03/06/20 08/25/24 History mcg (2,000 unit) capsule aspirin 81 mg chewable tablet 81 mg PO DAILY@0800 #30 tabs 07/03/21 08/25/24 Rx (Children's Aspirin) clopidogrel 75 mg tablet 75 mg PO DAILY 06/02/22 08/25/24 History flash glucose scanning reader #1 ea 06/02/22 08/03/24 Rx (FreeStyle Juliann 2 [place]) blood sugar diagnostic (OneTouch #100 strips 10/13/22 08/03/24 Rx Verio test strips) triamcinolone acetonide 0.5 % 1 applic topical BID PRN rash 08/06/23 08/08/24 History topical cream bilateral legs metoprolol succinate 50 mg 50 mg PO DAILY 10/14/23 08/25/24 History tablet,extended release 24 hr empagliflozin 12.5 mg-metformin ER 2 tablet (2 x 12.5-1,000 mg) PO 04/11/24 08/25/24 Rx 1,000 mg tablet,extended rel 24 hr QAM 90 days #180 ea (Synjardy XR) glucagon 3 mg/actuation nasal spray 3 mg intranasal ONCE #2 ea 04/11/24 08/08/24 Rx insulin degludec 200 unit/mL (3 20 unit (0.1 mL) subcut DAILY #9 mL 04/11/24 08/25/24 Rx mL) subcutaneous pen (Tresiba FlexTouch U-200 insulin) pen needle, diabetic 32 gauge x #100 ea 04/11/24 08/03/24 Rx 5/32 (TRUEplus Pen Needle) lisinopril 40 mg tablet 40 mg PO DAILY #90 tabs 05/09/24 08/25/24 Rx tirzepatide 7.5 mg/0.5 mL 7.5 mg (0.5 mL) subcut WEEKLY #2 mL 05/19/24 08/25/24 Rx subcutaneous pen injector (Mounjaro) rosuvastatin 20 mg tablet (Crestor) 20 mg PO DAILY #100 tabs 06/13/24 08/25/24 Rx flash glucose sensor (FreeStyle #6 ea 07/25/24 08/03/24 Rx Juliann 2 Sensor kit) hydrochlorothiazide 25 mg tablet 25 mg PO DAILY #90 tabs 06/16/25 07/03/25 Rx Allergies Allergy/AdvReac Type Severity Reaction Status Date / Time No Known Allergies Allergy Verified 08/25/24 12:34 Vital Signs Vital Signs - 24 hr 08/25/24 12:39 Temperature 97.4 F L Pulse Rate 97 Respiratory Rate 18 Blood Pressure 117/76 Pulse Oximetry 99 Oxygen Delivery Room Air Exam Const: General: cooperative and healthy appearing Resp: Effort & Inspection: normal respiratory effort and able to speak in complete sentences Auscultation: clear to auscultation bilaterally Cardio: Rate: regular rate Rhythm: regular rhythm GI: Inspection: normal to inspection GI Palp: No No hepatosplenomegaly present Auscultation: normal bowel sounds Rectal Exam: deferred Skin: General skin exam: normal color Psych: Appearance: grossly normal Mental Status: mental status grossly normal Assessment and Plan Assessment and plan (1) Rectal cancer: Code(s): C20 - Malignant neoplasm of rectum Status: Acute Assessment and Plan: The patient is deemed a good candidate for the procedure. Consent signed. Will proceed.
--- NOTE | 2024-08-25 13:42 | S_PTH ---
PATIENT: Reji Heredia LOC: [facility]#:[id number] AGE/SX: 74/M ROOM: RE08/25/[address]: Ethan Welch MD : 1950 BED: DIS: 08/25/2024 SPEC #: [id number] RECD: 08/25/24 14:20 STATUS: DANETTE REQ #: [id number] ANNA: 08/25/24 13:[address]: Ethan Welch DEPT: [facility] Surgical RECD BY: Joana Can ENTERED: 08/25/24 14:20 SP TYPE: Surgical OTHR DR: Brooks Sin MD Tissues: A - Rectal Biopsy Procedures: Hematoxylin and Eosin Stain Gross and Microscopic Level 4
[2024-08-25 13:45] VITALS: BP 98/55; PULSE 99; RESP 34; O2SAT 95
[2024-08-25 13:55] VITALS: BP 101/65; PULSE 92; RESP 21; O2SAT 96
[2024-08-25 14:05] VITALS: BP 114/71; PULSE 88; RESP 24; O2SAT 98
== END 2024-08-25 14:45 | disposition home or self-care (01) ==
PROVIDERS: PCP Family Medicine; Referring Provider Family Medicine; Visit Provider Internal Medicine Gastroenterology
PROC: 0DJD8ZZ Inspection of Lower Intestinal Tract, Via Natural or Artificial Opening Endoscopic (ICD-10-PCS; CPT 45378; principal; 2024-08-25 13:30)
DX: Z08 Encounter for follow-up examination after completed treatment for malignant neoplasm (principal); D12.8 Benign neoplasm of rectum; Z85.048 Personal history of other malignant neoplasm of rectum, rectosigmoid junction, and anus; E11.9 Type 2 diabetes mellitus without complications; F17.210 Nicotine dependence, cigarettes, uncomplicated
CPT/HCPCS: 45380; 82948; 88305; J2003; J2704; J7120

== ENCOUNTER 2024-09-02 13:35 | Outpatient (CLI) | payer MEDICARE, SELFPAY ==
--- NOTE | ~2024-09-02 | CT_ITS ---
Clinical Indication: Colon cancer CT Scan of the Chest, Abdomen, and Pelvis with Contrast: Technique: Contiguous sections were acquired throughout the chest, abdomen, and pelvis after intraven ous administration of 100 cc of Omnipaque 350. Dose reduction technique was used on this scan by joaquim maier automated exposure control and iterative reconstruction technique. The dose-length product (DL P) was 420.75 mGy-cm. Comparison: 12/18/2023 Findings: There is no evidence of any significant mediastinal, hilar or axillary lymphadenopathy. The mediastin al soft tissues and vascular structures appear normal. There is no evidence of pleural or pericardial effusion. The lungs are clear. No pulmonary nodules or infiltrates are noted. There is diffuse hepatic steatosis. The spleen, pancreas, gallbladder, adrenals and kidneys are withi n normal limits. There are atherosclerotic calcifications of the aorta. No lymphadenopathy. No bowel obstruction or bowel wall thickening. There is no evidence to suggest acute appendicitis. Urinary bladder is unremarkable. Prostate gland is enlarged. No ascites. Impression: No acute abnormalities seen. No definite evidence for active malignancy or metastatic disease. Diffuse hepatic steatosis. Enlarged prostate gland. Reviewed, dictated and finalized at location . Impression: No acute abnormalities seen. No definite evidence for active malignancy or meta static disease. Diffuse hepatic steatosis. Enlarged prostate gland.
--- OUTSIDE RECORDS SUMMARY | 2024-09-02 13:39 | XMS_ITS | Referral Summary ---
Author Organization [facility] [place] [address] [place] [address] Care Team Providers Care [employer] Hyper[employer] Consultant Name Role Phone Brooks Sin MD Primary Care Provider [phone] Encounters Date Type Department Care Team Description 07/14/2024 8:00 AM CDT Office Visit [facility] Cardiology [address] [place] [address] Chad Muir MD History of ST elevation myocardial infarction (STEMI) (Primary Dx); Coronary artery disease involving [place] coronary artery of [place] heart without angina pectoris from Last 3 [...] AM 90 tablet 3 11/02/19 24 Active Synjardy XR 12.5-1,000 mg tablet, IR & ER, biphasic 24hr Take 2 tablets by mouth every morning 06/22/19 25 Active lisinopriL (PRINIVIL,ZEST RIL) 40 mg tablet Take 1 tablet (40 mg total) by mouth daily Active clopidogreL (PLAVIX) 75 mg tablet TAKE 1 TABLET(75 MG) BY MOUTH DAILY 90 tablet 3 08/12/19 25 Active metoprolol XL (TOPROL-XL) 50 mg extended release tablet TAKE 1 TABLET(50 MG) BY MOUTH EVERY MORNING 90 tablet 3 08/31/19 25 Active clopidogreL (PLAVIX) 75 mg tablet TAKE 1 TABLET(75 MG) BY MOUTH DAILY 90 tablet 3 06/01/19 24 025 Discontinued metoprolol XL (TOPROL-XL) 50 mg extended release tablet TAKE 1 TABLET(50 MG) BY MOUTH EVERY MORNING 90 tablet 1 03/01/19 25 025 Discontinued Active Problems Problem Noted Date Diagnosed Date 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 07/19/2021 Dyslipidemia 07/19/2021 Essential hypertension 07/19/2021 Coronary artery disease invo lving [place] coronary artery of [place] heart without angina pectoris 07/19/2021 History of [...] on file Legal Sex Male 2:18 AM [employer] Gender Identity Not on file Sexual Orientation [...] 8:14 AM CDT Coronary artery disease involving [place] coronary artery of [place] heart without angina pectoris from Last 3 [...] Capillary blood 07/14/2024 8 :14 AM CDT us Chad Muir MD POINT OF CARE TEST ORDER NEVAEH Final Result from Last 3 Months Insurance [facility] MEDICARE ADVANTAGE [facility] Address: [address] [place] [phone] MEDICARE ADVANTAGE [facility] Address: [address] [place] [phone] MEDICARE ADVANTAGE [facility] Address: [address] [place], [place] [phone] Care Teams Oracle Hyperion Consultant Relationship Specialty Start Date End Date Brooks Sin MD PCP - General Family Practice 10/23/22
--- OUTSIDE RECORDS SUMMARY | 2024-09-02 13:39 | XMS_ITS | Continuity of Care Document ---
Author Organization [facility] Address [address] [place] [id number] Phone Care Team Providers Care Dtp Operator Name Role Phone Chad Hester Unavailable Unavailable Procedures Procedure Date Intraoral-periapical first film 011 Extraction, erupted tooth or exposed jose t (elevati Extraction, erupted tooth or exposed jose t (elevati Extraction, erupted tooth or exposed jose t (elevati Periodic oral evaluation Intraoral-periapical first film 011 Intraoral-periapical each additional karissa m LEFT W/O BEING SEEN Unspecified removable prosthodontic proc edure,by R Comprehensive oral evaluation-new or est ablished P Intraoral-complete series (including bit ewings) As per patient privacy policy some of the clinical information may not be visible. Advance Directives Directive Yes / No Effective Date File Name No Information Encounters Encounter Description Practice Location Reason(s) For Visit Diagnoses Date Provider Providers Copied on Encounter [facility] /[facility], [address] [place] [address], [id number], [place] tel:[phone] B GLK CSS CM No Information Kacie Bonilla. [address] [place] [address], [id number], [place]. [facility], [address] [place] [address], [address]80, [place] tel:[phone] B GR[facility] CCP Crisis No Information Chelo Goff. [address] [place] [address], [id number], [place]. [facility], [address] [place] [address], [address]65, [place] tel:[phone] B GR[facility] CCP Crisis No Information Cricket Hay. [address] [place] [address], [id number], [place]. tel:[phone] [facility], [address] [place] [address], 47296, [place] tel:[phone] B GLK CSS CM No Information Kacie Bonilla. [address] [place] [address], [id number], [place]. [facility], [address] [place] [address], 86680, [place] tel:[phone] B GRD CCP Crisis No Information Cricket Guido. [address] [place] [address], [id number], [place]. tel:[phone] [facility], [address] [place] [address], 38151, [place] tel:[phone] B GLK CSS CM No Information Kacie Bonilla. [address] [place] [address], [id number], [place]. [facility], [address] [place] [address], 43008, [place] tel:[phone] B RLP OP Doctors No Information Valerie Angeles. [address] [place] [address], 51214, [place]. tel:[phone] [facility], [address] [place] [address], 71174, [place] tel:[phone] B GLK CSS CM No Information Kacie Bonilla. [address] [place] [address], [id number], [place]. [facility], [address] [place] [address], 02521, [place] tel:[phone] B GLK CSS CM No Information Kacie Bonilla. [address] [place] [address], [id number], [place]. [facility], [address] [place] [address], 32618, tel:[phone] B GLK CSS CM No Information Kacie Bonilla. [address] [place] [address], [id number], [place]. [facility], [address] [place] [address], 24201, [place] tel:[phone] B GLK CSS CM No Information Kacie Bonilla. [address] [place] [address], [id number], [place]. [facility], [address] [place] [address], 08893, tel:[phone] [facility] No Information Hilda Teran. [address] [place] [address], [id number], [place]. tel:[phone] [facility], [address] [place] [address], 53703, [place] tel:[phone] B GLK CSS CM No Information Kacie Bonilla. [address] [place] [address], [id number], [place]. [facility], [address] [place] [address], 88399, [place] tel:[phone] B GLK CSS CM No Information Kacie Bonilla. [address] [place] [address], [id number], [place]. [facility], [address] [place] [address], 23589, [place] tel:[phone] B [facility] No Information Valerie Angeles. [address] [place] [address], 70004, [place]. tel:[phone] [facility], [address] [place] [address], 46116, [place] tel:[phone] B GLK CSS CM No Information Kacie Bonilla. [address] [place] [address], [id number], [place]. [facility], [address] [place] [address], 10502, tel:[phone] B GLK CSS CM No Information Kacie Bonilla. [address] [place] [address], [id number], [place]. [facility], [address] [place] [address], 15102, [place] tel:[phone] [facility] No Information Hilda Teran. [address] [place] [address], [id number], [place]. tel:[phone] [facility], [address] [place] [address], 58810, [place] tel:[phone] B GLK CSS CM No Information Kacie Bonilla. [address] [place] [address], [id number], [place]. [facility], [address] [place] [address], 54145, [place] tel:[phone] B GLK CSS CM No Information Kacie Bonilla. [address] [place] [address], [id number], [place]. [facility], [address] [place] [address], 00723, [place] tel:[phone] B GLK CSS CM No Information Estrella Guardado. [address] [place] [address], [id number], [place]. [facility], [address] [place] [address], 40528, [place] tel:[phone] B [facility] No Information Valerie Angeles. [address] [place] [address], 52800, [place]. tel:[phone] [facility], [address] [place] [address], 90763, tel:[phone] B GLK CSS CM No Information Estrella Debby. [address] [place] [address], [id number], [place]. [facility], [address] [place] [address], [address] [place] [address] tel:[phone] [facility] No Information Hilda Teran. [address] [place] [address], [id number], [place]. tel:[phone] [facility], [address] [place] [address], [facility], tel:[phone] B GLK CSS CM No Information Kacie Bonilla. [address] [place] [address], [id number], [place]. [facility], [address] [place] [address], [facility], tel:[phone] [facility] No Information Hilda Teran. [address] [place] [address], [id number], [place]. tel:[phone] [facility], [address] [place] [address], [facility], tel:[phone] B GLK CSS CM No Information Kacie Bonilla. [address] [place] [address], [id number], [place]. [facility], [address] [place] [address], 45534, tel:[phone] B GLK CSS CM No Information Kacie Bonilla. [address] [place] [address], [id number], [place]. [facility], [address] [place] [address], [facility], tel:[phone] B [facility] Doctors No Information Vinh Medrano. [address] [place] [address], [id number], [place]. tel:[phone] [facility], [address] [place] [address], 86062, [place] tel:[phone] B GLK CSS CM No Information Kacie Bonilla. [address] [place] [address], [id number], [place]. [facility], [address] [place] [address], [facility], tel:[phone] B GLK CSS CM No Information Kacie Bonilla. [address] [place] [address], [id number], [place]. [facility], [address] [place] [address], [facility], tel:[phone] B GRD CCP Crisis No Information Krista Fletcher. [address] [place] [address], [id number], [place]. tel:[phone] [facility], [address] [place] [address], [facility], [place] tel:[phone] B GRD CCP Crisis No Information Cricket Guido. [address] [place] [address], [id number], [place]. tel:[phone] [facility], [address] [place] [address], 89968, tel:[phone] B GLK CSS CM No Information Kacie Bonilla. [address] [place] [address], [id number], [place]. [facility], [address] [place] [address], 53659, [place] tel:[phone] B GLK CSS CM No Information Kacie Bonilla. [address] [place] [address], [id number], [place]. [facility], [address] [place] [address], 89797, [place] tel:[phone] B GLK CSS CM No Information Kacie Bonilla. [address] [place] [address], [id number], [place]. [facility], [address] [place] [address], 84432, [place] tel:[phone] B GLK CSS CM No Information Kacie Bonilla. [address] [place] [address], [id number], [place]. [facility], [address] [place] [address], 56268, [place] tel:[phone] B GLK CSS CM No Information Kacie Bonilla. [address] [place] [address], [id number], [place]. [facility], [address] [place] [address], 38505, [place] tel:[phone] B GLK CSS CM No Information Kacie Bonilla. [address] [place] [address], [id number], [place]. [facility], [address] [place] [address], 60238, [place] tel:[phone] B GLK CSS CM No Information Kacie Bonilla. [address] [place] [address], [id number], [place]. [facility], [address] [place] [address], 53360, [place] tel:[phone] B [facility] Doctors No Information Vinh Medrano. [address] [place] [address], [id number], [place]. tel:[phone] [facility], [address] [place] [address], 83293, [place] tel:[phone] B GLK CSS CM No Information Kacie Bonilla. [address] [place] [address], [id number], [place]. [facility], [address] [place] [address], 28097, [place] tel:[phone] B GLK CSS CM No Information Kacie Bonilla. [address] [place] [address], [id number], [place]. [facility], [address] [place] [address], 12429, tel:[phone] B [facility] No Information Vinhsolomon Dorseyr. [address] [place] [address], [id number], [place]. tel:[phone] [facility], [address] [place] [address], [facility], [place] tel:[phone] B GLK CSS CM No Information Kacie Bonilla. [address] [place] [address], [id number], [place]. [facility], [address] [place] [address], [facility], tel:[phone] B GLK CSS CM No Information Kacie Bonilla. [address] [place] [address], [id number], [place]. [facility], [address] [place] [address], [facility], tel:[phone] B GLK CSS CM No Information Kacie Bonilla. [address] [place] [address], [id number], [place]. [facility], [address] [place] [address], [facility], tel:[phone] B GLK CSS CM No Information Kacie Bonilla. [address] [place] [address], [id number], [place]. [facility], [address] [place] [address], [facility], [place] tel:[phone] B GLK CSS CM No Information Kacie Bonilla. [address] [place] [address], [id number], [place]. [facility], [address] [place] [address], [facility], tel:[phone] B [facility] No Information Vinh Badr. [address] [place] [address], [id number], [place]. tel:[phone] [facility], [address] [place] [address], 60384, tel:[phone] B GLK CSS CM No Information Kacie Bonilla. [address] [place] [address], [id number], [place]. [facility], [address] [place] [address], 31257, tel:[phone] B GLK CSS CM No Information Kacie Bonilla. [address] [place] [address], [id number], [place]. [facility], [address] [place] [address], [facility], tel:[phone] B GLK CSS CM No Information Kacie Bonilla. [address] [place] [address], [id number], [place]. [facility], [address] [place] [address], [facility], tel:[phone] B GLK CSS CM No Information Kacie Bonilla. [address] [place] [address], [id number], [place]. [facility], [address] [place] [address], 61656, tel:[phone] B GLK CSS CM No Information Kacie Bonilla. [address] [place] [address], [id number], [place]. [facility], [address] [place] [address], 85709, [place] tel:[phone] B GLK CSS CM No Information Kacie Bonilla. [address] [place] [address], [id number], [place]. [facility], [address] [place] [address], 27402, tel:[phone] B GLK CSS CM No Information Kacie Bonilla. [address] [place] [address], [id number], [place]. [facility], [address] [place] [address], 83673, [place] tel:[phone] B GLK CSS CM No Information Kacie Bonilla. [address] [place] [address], [id number], [place]. [facility], [address] [place] [address], 69079, [place] tel:[phone] B GLK CSS CM No Information Kacie Bonilla. [address] [place] [address], [id number], [place]. [facility], [address] [place] [address], 43658, [place] tel:[phone] B GLK CSS CM No Information Kacie Bonilla. [address] [place] [address], [id number], [place]. [facility], [address] [place] [address], 64561, [place] tel:[phone] B GLK CSS CM No Information Kacie Bonilla. [address] [place] [address], [id number], [place]. [facility], [address] [place] [address], 85264, [place] tel:[phone] B [facility] No Information Alexandra Degroot. [address] [place] [address], [id number], [place]. tel:[phone] [facility], [address] [place] [address], 26684, [place] tel:[phone] B GLK CSS CM No Information Kacie Bonilla. [address] [place] [address], [id number], [place]. [facility], [address] [place] [address], 24238, [place] tel:[phone] B GLK CSS CM No Information Kacie Bonilla. [address] [place] [address], [id number], [place]. [facility], [address] [place] [address], 99788, [place] tel:[phone] B GLK CSS CM No Information Kacie Bonilla. [address] [place] [address], [id number], [place]. [facility], [address] [place] [address], 04383, [place] tel:[phone] B GLK CSS CM No Information Kacie Bonilla. [address] [place] [address], [id number], [place]. [facility], [address] [place] [address], 11310, [place] tel:[phone] B GLK CSS CM No Information Kacie Bonilla. [address] [place] [address], [id number], [place]. [facility], [address] [place] [address], 80209, [place] tel:[phone] B GLK CSS CM No Information Kacie Bonilla. [address] [place] [address], [id number], [place]. [facility], [address] [place] [address], 61901, [place] tel:[phone] B GLK CSS CM No Information Kacie Bonilla. [address] [place] [address], [id number], [place]. [facility], [address] [place] [address], 62177, [place] tel:[phone] B GLK CSS CM No Information Kacie Bonilla. [address] [place] [address], [id number], [place]. [facility], [address] [place] [address], 05533, [place] tel:[phone] B GLK CSS CM No Information Kacie Bonilla. [address] [place] [address], [id number], [place]. [facility], [address] [place] [address], 85864, [place] tel:[phone] B GLK CSS CM No Information Kacie Bonilla. [address] [place] [address], [id number], [place]. [facility], [address] [place] [address], 80933, [place] tel:[phone] B GLK CSS CM No Information Kacie Bonilla. [address] [place] [address], [id number], [place]. [facility], [address] [place] [address], 03711, [place] tel:[phone] B GLK CSS CM No Information Kacie Bonilla. [address] [place] [address], [id number], [place]. [facility], [address] [place] [address], 84195, [place] tel:[phone] B GLK CSS CM No Information Kacie Bonilla. [address] [place] [address], [id number], [place]. [facility], [address] [place] [address], 45768, [place] tel:[phone] B GLK CSS CM No Information Kacie Bonilla. [address] [place] [address], [id number], [place]. [facility], [address] [place] [address], 66495, [place] tel:[phone] B GLK CSS CM No Information Kacie Bonilla. [address] [place] [address], [id number], [place]. [facility], [address] [place] [address], 81499, [place] tel:[phone] B GLK CSS CM No Information Kacie Bonilla. [address] [place] [address], [id number], [place]. [facility], [address] [place] [address], 14437, [place] tel:[phone] [facility] No Information Vinh Medrano. [address] [place] [address], [id number], [place]. tel:[phone] [facility], [address] [place] [address], 08413, [place] tel:[phone] B GLK CSS CM No Information Kacie Bonilla. [address] [place] [address], [id number], [place]. [facility], [address] [place] [address], [facility], [place] tel:[phone] B GLK CSS CM No Information Kacie Bonilla. [address] [place] [address], [id number], [place]. [facility], [address] [place] [address], [facility], tel:[phone] B GLK CSS CM No Information Kacie Bonilla. [address] [place] [address], [id number], [place]. [facility], [address] [place] [address], [facility], [place] tel:[phone] B GLK CSS CM No Information Kacie Bonilla. [address] [place] [address], [id number], [place]. [facility], [address] [place] [address], [facility], tel:[phone] B GRD CCP Crisis No Information Traci Garnett. [address] [place] [address], [id number], [place]. [facility], [address] [place] [address], 14152, [place] tel:[phone] B GRD CCP Crisis No Information Nick Maria. [address] [place] [address], [id number], [place]. tel:[phone] [facility], [address] [place] [address], [facility], [place] tel:[phone] B [facility] No Information Vinh Badr. [address] [place] [address], [id number], [place]. tel:[phone] [facility], [address] [place] [address], 97314, [place] tel:[phone] B GLK CSS CM No Information Kacie Bonilla. [address] [place] [address], [id number], [place]. [facility], [address] [place] [address], 84657, [place] tel:[phone] B GLK CSS CM No Information Kacie Bonilla. [address] [place] [address], [id number], [place]. [facility], [address] [place] [address], 52957, [place] tel:[phone] B GLK CSS CM No Information Kacie Bonilla. [address] [place] [address], [id number], [place]. [facility], [address] [place] [address], 66930, [place] tel:[phone] [facility] No Information Vinh Badr. [address] [place] [address], [id number], [place]. tel:[phone] [facility], [address] [place] [address], 85873, [place] tel:[phone] [facility] No Information Vinh Badr. [address] [place] [address], [id number], [place]. tel:[phone] [facility], [address] [place] [address], 86830, [place] tel:[phone] B [facility] Crisis No Information Cricket Guido. [address] [place] [address], [id number], [place]. tel:[phone] [facility], [address] [place] [address], 87552, [place] tel:[phone] B [facility] CCP Crisis No Information Cricket Hay. [address] [place] [address], [id number], [place]. tel:[phone] [facility], [address] [place] [address], 82440, [place] tel:[phone] [facility] No Information Nathalia Galo. [address] [place], [id number], [place]. tel:[phone] [facility], [address] [place] [address], [facility], tel:[phone] [facility] No Information Yael Perry. [address] [place] [address], [id number], [place]. [facility], [address] [place] [address], [facility], [place] tel:[phone] [facility] No Information Vinh Dorseyr. [address] [place] [address], [id number], [place]. tel:[phone] [facility], [address] [place] [address], 06568, [place] tel:[phone] [facility] No Information Yael Perry. [address] [place] [address], [id number], [place]. [facility], [address] [place] [address], 48693, [place] tel:[phone] [facility] No Information Vinh Badr. [address] [place] [address], [id number], [place]. tel:[phone] [facility], [address] [place] [address], 42943, [place] tel:[phone] [facility] No Information Nathalia Galo. [address] [facility], [place], [place], [id number], [place]. tel:[phone] [facility], [address] [place] [address], 13708, tel:[phone] [facility] No Information Vinh Dorseyclaire. [address] [place] [address], [id number], [place]. tel:[phone] [facility], [address] [place] [address], 33667, [place] tel:[phone] [facility] No Information Jeff Arcos. [address] [place] [address], [id number], [place]. tel:[phone] [facility], [address] [place] [address], 85850, tel:[phone] [facility] No Information Jeff Arcos. [address] [place] [address], [id number], [place]. tel:[phone] Family History Family Member Type Diagnosis Age At Onset No Information Payers Payer name Insurance type Covered republican ID rosa coleman(s) [facility] Fee For Service 11 [id number] Social History Type Description Quantity Date Captured Comments Sex Male Smoking Status No Information Chief Complaint And Reason For Visit No Information History Of Present Illness Encounter Date Complaint History Of Prese nt Illness No Information Instructions Date Instruction Additional Infor mation No Information Assessments Type Assessment Date No Information Patient Care Teams Name Effective Dates (start - stop) Status Members No Information
--- OUTSIDE RECORDS SUMMARY | 2024-09-02 13:39 | XMS_ITS | Clinical Summary ---
Author [place] [facility] [place] [address] [facility] [address] Address [address] [facility] [address] [place] [address] Care Team Providers Care Chiseler Head Name Role Phone Brooks Sin MD Primary Care Provider [phone] Allergies Active Allergy Reactions Criticality Noted Date [...] hypertension 07/19/2021 Coronary artery disease invo lving [place] coronary artery of [place] heart without angina pectoris 07/19/[address] elevation myocardial infarction (S LOVELY) 07/19/2021 Family history of early CAD 09/23/2016 Encounters Date Type Department Care Team Description 07/14/2024 8:00 AM CDT Office Visit [facility] [address] [place] [address] Chad Muir MD History of ST elevation myocardial infarction (STEMI) (Primary Dx); Coronary artery disease involving [place] coronary artery of [place] heart without angina pectoris from Last 3 [...] on file Legal Sex Male 2:18 AM [employer] Gender Identity Not on file Sexual [...] 04/28/2016 Well Visit 65+ 04/28/2016 Influenza Vaccine (#1) 2024 Lipid Panel 07/14/2025 07/14/2024, 09/0 06/2023, 10/23/2022, Additional history exists DTaP/Tdap/Td Vaccine (2 - Td or Tdap) 05/06/2033 05/07/2023 Procedures Procedure Name Priority Date/Time Associated Diagnosis Comments POCT LIPID PANEL Routine 07/14/2024 8:14 AM CDT Coronary artery disease involving [place] coronary artery of [place] heart without angina pectoris from Last 3 [...] Final Result from Last 3 Months Insurance [id number] Address: [address] [address] [facility] Address: [address] [address] [place] [address] [employer] [facility] Address: [address] [address] [place] [address] Care Teams Chiseler Head Relationship Specialty Start Date End Date Brooks Sin MD PCP - General Family Practice 10/23/22
[2024-09-02 14:04] LABS: Estimated Glomerular Filt Rate 43
== END 2024-09-02 13:36 | disposition home or self-care (01) ==
PROVIDERS: PCP Family Medicine; Visit Provider Internal Medicine Gastroenterology
DX: C18.9 Malignant neoplasm of colon, unspecified (principal); K76.0 Fatty (change of) liver, not elsewhere classified; N40.0 Benign prostatic hyperplasia without lower urinary tract symptoms
CPT/HCPCS: 71260; 74177; Q9967